=== PATIENT | male | born 1995 | race Caucasian/White ===

== ENCOUNTER 2019-08-09 09:00 | Outpatient (RCR) | payer OTHER, SELFPAY ==
--- NOTE | 2019-08-09 09:05 | BH.SGPN.GN ---
Behaviors/Verbalizations/Mental Status: []Client alert and oriented, neatly dressed and groomed. Eye contact good. Motor activity appropriate. Speech within normal limits. Affect flat, mood anxious. Thoughts linear, logical, no signs of hallucinations or delusions. Client completed IOP paperwork this morning and was assessed with the CSSR-S for suicidal ideations and behaviors. Client Response/Progress/Benefit: [] Client responded well to session, receptive to positive feedback from peers. Client reports feeling anxious today as it is his first day in IOP. Client reported he struggles with social anxiety, so meeting new people is difficult for him. The group helped client recognize the positives in coming to group today despite being anxious. Client stated he recently started a new job and it's a weird time to be starting a new job because of COVID-19. Client's stressor today is that he has not been sleeping. Client wants to improve his mental health and received supportive statements from peers about IOP. Client completed a small exercise where he identified things he is grateful for which included his supportive family and friends. Appeared to benefit from connecting with peers and identifying things he is grateful for today. Will continue IOP tx to prevent decompensation of symptoms, improve healthy coping skills, and reduce social anxiety. Narrative Note: []
--- NOTE | 2019-08-09 10:10 | BH.NA ---
Physical Data - Vital Signs Temperature: 97.7 F Pulse Rate: 80 Respiratory Rate: 16 Blood Pressure: 130/78 - Height/Weight Height: 1.78 m Weight:: 72.575 kg Weight in Pounds: 160.0 lbs Current Medication Compliance - Medication Compliance Do you take your medication as prescribed?: Yes Nutritional History - Appetite Nutritional Instructions:: If client shows signs of a swallowing problem, weight change of 10 pounds or more in the last month, or is on a diabetic diet, the physician will review and request a dietitian consult, as appropriate. All unintentional weight loss will be referred to the physician for decision on need for dietitian consult. Describe your appetite:: Fair Additional nutritional information:: client reports slightly decreased appetite Functional Assessment - Sleep Pattern Describe any problems with sleeping: Client reports sleeping only 5-6 hours per night. Client states that he wakes up frequently and has problems going back to sleep. - Activities Motor Activity:: Functional Sensory/Communication Assess - Communication Problems Do you have difficulty understanding what people are saying?: No Medical Problems/History - Gastrointestinal Conditions Gastrointestinal: Other (See comments) Comments:: history of eosinophilic esophagitis that he has done intermittent treatment for - Pain Assessment Do you have acute or chronic pain?: No Surgical History - Surgical History Have you had any surgeries? If so, list type and date:: No Substance Abuse - Substance Abuse Please describe substance abuse in the last 30 days:: Client reports occasional social alcohol use. Client states he uses chewing tobacco not very often. Client denies substance abuse. Client states he drinks 1-2 pops per day with caffiene. Mental Status Summary - Mental Status Significant Findings/Observations on Appearance and Mood:: Client is alert and oriented x 4. Client is casually groomed with good hygiene. Client is cooperative with assessment with normal activity. Client makes fair eye contact during conversation. Client's voice volume soft, rate of speech normal, and does speak spontaneously. Client with good attention during assessment. Client appears mildly anxious and depressed. Clients affect somewhat flat. Client with normal processing. Denies delusions/hallucinations and no evidence of same. Client denies SI at this time. Suicide Assessment - Suicidal Ideation Are you currently or have you been suicidal in the past?: No - denies Suicidal Intentional Rating Scale (SIRS): No suicidal thoughts (past or present) Physician Notification: If Active suicidal thoughts/Will not contract for safety is checked, contact physician and document in the Physician Notification section below. Past Psychiatric History - MH Treatment Hx Age of first mental health symptoms: Client states he was diagnosed around age 15 with anxiety and depression and states he has been going to therapy off and on since. Describe (age, circumstance, etc) any past hospitalizations: none Current providers for mental health treatment (counselor, psychiatrist, patient case coordinator, etc.): therapy at [facility] Fall Risk Assessment - Age Age: Less than 60 - Mental Status Mental Status: Willing & able to ask for assistance when needed - Physical Status Physical Status: No problems - Impairments Impairments: None - Elimination Elimination: Continent AND independent - Gait or Balance Gait or Balance: Walks independently - Hx of Falls History of falls in the past 6 months: No known history - Medications/Substances Psychotropics:: Antidepressants Medications/substances used within the past 24 hours or ordered to administer: 1-2 of the medications/substances listed above - Total Score Total Points:: 1 RN Summary of Impressions - Impressions Recommendations: Include psychiatric and medical issues, treatment planning recommendations, and discharge planning needs. 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 Client states he is in the process of changing his PCP to an adult doctor. - Level of Care How do the client's current symptoms and functional deficits support need for this level of care?: Client states his mental health symptoms seem to come in phases where he is able to cope okay for awhile, but then his symptoms and feelings of depression are worse. Client states recently he has been feeling hopelessness, low energy, feels like a burden, has poor self esteem. Client reports he feels like he wants to avoid social situations and isolate. Client states at times he does have feelings of panic attacks where his heart feels like it is racing. Client denies SI. IOP will promote gains and prevent further decompensation while providing social support and skills training.
--- NOTE | 2019-08-09 10:14 | BH.SGPN.GN ---
Behaviors/Verbalizations/Mental Status: []Client alert and oriented, casually dressed and groomed. Eye contact fair. Motor activity appropriate. Speech within normal limits. Affect flat, mood anxious and depressed. Thoughts linear, logical, no signs of hallucinations or delusions. Client Response/Progress/Benefit: []Client was a passive participant AEB client providing limited input during discussion, however listened attentively to others. Client connected with discussion on different types of anxiety, as well as the difference between ?normal? anxiety and anxiety disorders. Client gained awareness of personal physical symptoms of anxiety which included: headache, tight muscles, tight chest, racing heart, sweaty palms, and difficulty concentrating. Client identified anxious thoughts he has include: did I make a mistake?; What will everyone think?; Will they be mad at me?. Client appeared to benefit from gaining insight to physical signs of anxiety and how thoughts can increase anxiety. Will continue IOP to increase healthy coping skills, challenge distorted thoughts, and prevent decompensation. Narrative Note: []
[2019-08-09 12:13] VITALS: BP 130/78; PULSE 80; RESP 16; TEMP 36.5
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
--- NOTE | 2019-08-09 12:47 | BH.DR.ITP ---
Initial Treatment Plan - Patient Information Visit Information: ADMISSION DATE: EXPECTED LOS: 4-6 weeks - Problems/Symptoms Problem #1:: Depression Symptom:: Sadness, anhedonia, passive thoughts of , biological disruption of sleep, decreased concentration Problem #2:: Anxiety Symptom:: Rumination, panic attacks, avoidance of social activity
--- NOTE | 2019-08-09 14:31 | BH.COMM ---
Communication Note - Communication with Client Communication Note: Completed initial paperwork with patient. No significant changes since pre-admission screening. Completed C-SSRS with patient with low to moderate risk. Pt denies any active suicidal ideations in the past week, denies ever experiencing any intent or thinking of suicide plans. Notes passive thoughts of just not wanting to be here or not wanting to have to deal with things anymore.
--- NOTE | 2019-08-10 09:09 | BH.SGPN.GN ---
Behaviors/Verbalizations/Mental Status: []Client alert and oriented, casual dress, hygiene tended to. Eye contact good. Motor activity appropriate. Speech within normal limits. Affect flat, mood depressed and anxious. Thoughts linear, logical, no signs of hallucinations or delusions. Reviewed client?s symptom tracker, no signs of suicidal ideation, plan, or intent as of today. Client Response/Progress/Benefit: []Pt responded well to session AEB pt listening to others and sharing thoughts and feelings openly with group. Pt reported a mental health positive was starting a job on Wednesday which gives him something to do. Pt stated he is working two and a half days a week. Pt reported stressor is the coronovirus pandemic because it makes him more anxious. Pt stated everyone is talking about it so it makes him more anxious. Pt receptive to feedback and support from peers. Seemed to benefit from validation from others. Pt to continue IOP level of care to increase healthy coping, decrease depressive symptoms and prevent decompensation. Narrative Note: []
--- NOTE | 2019-08-10 10:09 | BH.SGPN.GN ---
Behaviors/Verbalizations/Mental Status: []Client alert and oriented, casually dressed and groomed. Eye contact good. Motor activity appropriate. Speech within normal limits, quiet and limited input provided. Affect congruent, mood anxious and depressed. Thoughts linear, logical, no signs of hallucinations or delusions. Client Response/Progress/Benefit: [] Client responded well to session, providing limited input though attentive and taking notes throughout. Client participated in discussion of things that can keep people feeling trapped or stuck in life including; isolation, lack of trust, pushing others away, focusing on negatives/defeatist attitude, unhealthy relationships, and negative self-talk. Group discussed the connection between thoughts, emotions, and behaviors as well as how negative thinking can keep a person stuck. Client expressed relating to examples provided by fellow participants. Engaged during psychoeducation on maintenance cycles. Client able to identify negative thoughts that have kept client feeling trapped. Client shared negative thought which was ?If I make a mistake, what will happen?? and ?Will someone be mad if I mess up??. Appeared to benefit from gaining awareness of how negative thoughts reinforce mental health symptoms and keep people stuck. Progress noted in client?s improving engagement in group. Will continue IOP to promote mood stability, reduce depression, and reinforce healthy coping skills. Narrative Note: []
--- NOTE | 2019-08-10 11:13 | BH.SGPN.GN ---
Behaviors/Verbalizations/Mental Status: []Client alert and oriented, neatly dressed and groomed. Eye contact good. Motor activity appropriate. Speech within normal limits. Affect flat, mood dysthymic/anxious. Thoughts linear, logical, no signs of hallucinations or delusions. Client Response/Progress/Benefit: []Client responded well to session, contributing to discussion when prompted. Client appeared to connect with maintenance cycles and recognized how negative thinking can keep a person stuck. Client identified a negative thought that has kept him stuck. Client shared he often struggles with looking too far into the future, rather than the next step. Client's thought was what will happen if I mess up? Client able to connect how this thought maintains anxious and depressive cycles. Client reported when thinks this way it leads to avoidance and feeling embarrassed. Client able to reframe the thought by saying let's be cautious, but recognize mistakes happen. You can keep going regardless. Client shared this thought would improve his mental health because it could reduce self-criticism. Client appeared to benefit from practicing challenging negative thinking. Client to continue IOP to prevent decompensation, improve healthy coping skills, and reduce social anxiety. Narrative Note: []
--- NOTE | 2019-08-11 09:10 | BH.SGPN.GN ---
Behaviors/Verbalizations/Mental Status: []Eye contact is good. Motor activity is appropriate. Appearance is casual. Speech is Appropriate, soft. Mood is depressed and anxious. Affect is constricted, flat. Thoughts are linear and logical. No evidence of psychosis. Reviewed daily check in sheet and no reports of suicidal ideations or intent. Client Response/Progress/Benefit: []Pt was receptive of session, engaged throughout. Described current mood as ?a little more upbeat? and noted this is due to improved sleep last night. Shared feeling more alert which pt noted as a mental health win as he will be able to focus more in group. Noted additional win as being able to reframe anxiety related to recent workplace restrictions by noting this as an opportunity for increased time spent with supports. Stressor noted as ongoing concern regarding current occupational uncertainty and fears the government will require, he not work given national pandemic. Appeared to benefit from the support of the group and focusing on that which is within his control. Benefited from group support, encouragement, and feedback. Will continue in IOP to prevent decompensation, stabilize mood, and improve daily functioning. Narrative Note: []
--- NOTE | 2019-08-11 10:14 | BH.SGPN.GN ---
Behaviors/Verbalizations/Mental Status: []Eye contact is good. Motor activity is appropriate. Appearance is neat. Speech is soft. Mood is dysthymic. Affect is constricted. Thoughts are linear and logical. No evidence of psychosis. Client Response/Progress/Benefit: []Client was an active participant AEB client taking notes and actively participating in the group activity. Client attentive and listening during the discussion of the quote and defining pitfalls. Group worked together to identify what keeps us stuck or vulnerable to pitfalls which included; negative thinking, social anxiety, learned behaviors, comfort, fear of failure, fear of rejection, and not asking for help. Client reported negative thoughts and social anxiety have kept client stuck and prevented him from taking risks. Engaged during the activity and providing directions at times. Benefited from increased awareness on the impact that pitfalls can have on mental health. Will continue IOP tx to prevent decompensation, improve daily functioning, and reduce anxiety.
--- NOTE | 2019-08-11 15:02 | BH.MDN ---
Multi-Disciplinary Note - Note 30-min Individual Time Started:: 11:07 Date: 08/11/19 Purpose of session/treatment goals addressed:: The purpose of this session was to gather information on client's current stressors, symptoms, and treatment goals. Another goal was to build rapport. Eye Contact:: Good Motor Activity:: Appropriate Appearance:: Neat Speech:: Soft Mood:: Dysthymic Affect:: Constricted Thoughts:: Linear, Logical, No evidence of hallucinations/delusions noted Staff Interventions:: Therapist used active listening and open-ended questions to explore client's current stressors, symptoms, history, and treatment goals. Therapist used strengths perspective to build rapport and help client identify personal resilience factors. Therapist provided psychoeducation on depression, maintenance cycles, and cognitive distortions. Client Response:: Client responded well to session, open to meeting with therapist. Client shared his outpatient therapist, Kait Baker, referred client to IOP. Client reported therapist had encouraged client to come last year and then again this year. Client shared he has been struggling to manage his mental health symptoms and it was beginning to impact his school work. Client shared he does not know what triggered his worsening symptoms. Reports isolative behaviors, anhedonia, passive thoughts of , guilt about not functioning at his baseline, and severe anxiety. Client states having social anxiety that causes client to shut down and avoid. Client reports this is often driven by his negative thoughts and fears of making mistakes. Client shared he is starting to feel more comfortable in IOP, but he is still anxious about being around people. Receptive to identifying treatment goals which included; reducing social anxiety, reducing negative thinking, being more positive, and decreasing guilt. Client and therapist discussed ERP therapy and how this could benefit client in reducing social anxiety. Risks/Concerns:: Client denies any active suicidal ideations, plan, and intent as of 08/11/19. Progress Toward Goals/Plan:: Client's first week of IOP tx. Currently endorses a depressed mood with anhedonia, low energy, and passive thoughts of . Client also reports social anxiety, avoidance behaviors, and negative thinking. Client shared his anxiety has caused client to struggle in college and prevents client for trying new things for fear that he will make mistakes. Receptive to ERP and learning more about managing his symptoms. Will continue IOP tx to prevent decompensation, improve daily functioning, and reduce anxiety. Time Stopped:: 11:27
--- NOTE | 2019-08-11 15:15 | BH.MTP_ITS ---
Master Treatment Plan - Patient Information Program Physician:: Dr. 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 Description of Barriers: Client shared he has been avoiding anxiety-producing situations which has led to isolation. Client's isolation reinforces depressive symptoms and further exacberates anxiety. Client has numerous distorted thoughts of self and thinks that others think negatively of him. Client's social anxiety prevents client from meeting new supports, performing in school, and advocating for himself in the work setting. Client reports in the past he has not been consistent with using coping skills and shared I eventually go back to old ways. Functional Impact: Client is a 24-year-old male with a history of depression and anxiety. Client has a no previous psychiatric admissions. Client was referred to [facility] by his outpatient therapist due to limited benefit from outpatient counseling. Client's mental health symptoms have impacted his ability to functioning in college. Client shared he was unable to perform academically and moved home from college. Client currently endorses a depressed mood, anhedonia, lack of motivation, fear, guilt about not performing well academically, isolative behaviors, ruminations, social anxiety, and avoidance behaviors. Client also endorses poor sleep, poor appetite, low energy, and poor self- esteem. Client reports some fleeting suicidal ideations, but denies any active suicidal ideations, plan, or intent. Client states having occasional panic attacks. Client's anxiety worsens in social situations and he reports numerous negative assumptions that reinforce low self-esteem. Client's symptoms are currently impacting his social, occupational, and educational functioning. Goal Relevant Strengths/Supports: Client presents as a kind, intelligent, and receptive individual. Client reports support from his mother, step-father, sister, and a few friends. Client is established with outpatient counseling through [facility]. Client enjoys spending time with his dog and when he is functioning at his baseline, he likes to go out with friends. - Objectives Objective #1 Stated Objective: Client will identify at least 2-3 negative self-talk messages used to reinforce negative core beliefs and replace thoughts with positive, realistic messages. Interventions: Therapist will help client identify distorted, negative beliefs about self and replace with more realistic, affirmative messages. Therapist will use CBT to help client increase insight to the connection between thoughts, emotions, and behaviors. Therapist will also use dialectical thinking to help client combat all or nothing expectations. Therapist will encourage client to practice thought challenging. Discharge Criteria: Client will have achieved this goal when can verbalize at least 2 negative self-talk messages and effectively replace those thoughts with affirmative messages. Target Date: 09/20/19 Review Date: 09/08/19 Status: open Objective #2 Stated Objective: Client will learn and utilize 2-3 healthy coping strategies to better manage depressive symptoms as shown by a reduced DSM-5 scores for depression. Interventions: Through group and individual sessions, therapist will help client identify triggers and warning signs of depression and emotional dysregulation including emotional, physical, and behavioral changes. Therapist will teach client various coping skills to manage her symptoms and give client tangible resources to use to regulate emotions. Therapist will use cognitive restructuring techniques and help client gain awareness of negative thoughts that reinforce guilt and depression. Therapist will provide psychoeducation on maintenance cycles and help client learn ways to break unhealthy maintenance cycles. Therapist will help client incorporate behavioral activation and assist client in setting SMART goals. Discharge Criteria: Client will have met this goal when he can report learning and using at least 2 coping skills to manage depressive symptoms. Additionally, client will have met this goal when his depressive symptoms have reduced on the DSM-5 scale. Target Date: 09/20/19 Review Date: 09/08/19 Status: open Problem/Goal #2 - Problem/Goal #2 Stated Goal:: Client will reduce social anxiety while increasing ability to function on daily basis. Description of Barriers: Client shared he has been avoiding anxiety-producing situations which has led to isolation. Client's isolation reinforces depressive symptoms and further exacberates anxiety. Client has numerous distorted thoughts of self and thinks that others think negatively of him. Client's social anxiety prevents client from meeting new supports, performing in school, and advocating for himself in the work setting. Client reports in the past he has not been consistent with using coping skills and shared I eventually go back to old ways. Functional Impact: Client is a 24-year-old male with a history of depression and anxiety. Client has a no previous psychiatric admissions. Client was referred to [facility] by his outpatient therapist due to limited benefit from outpatient counseling. Client's mental health symptoms have impacted his ability to functioning in college. Client shared he was unable to perform academically and moved home from college. Client currently endorses a depressed mood, anhedonia, lack of motivation, fear, guilt about not performing well academically, isolative behaviors, ruminations, social anxiety, and avoidance behaviors. Client also endorses poor sleep, poor appetite, low energy, and poor self- esteem. Client reports some fleeting suicidal ideations, but denies any active suicidal ideations, plan, or intent. Client states having occasional panic attacks. Client's anxiety worsens in social situations and he reports numerous negative assumptions that reinforce low self-esteem. Client's symptoms are currently impacting his social, occupational, and educational functioning. Goal Relevant Strengths/Supports: Client presents as a kind, intelligent, and receptive individual. Client reports support from his mother, step-father, sister, and a few friends. Client is established with outpatient counseling through [facility]. Client enjoys spending time with his dog and when he is functioning at his baseline, he likes to go out with friends. - Objectives Objective #1 Stated Objective: Client will identify 2-3 anxiety triggers and 2 coping skills to use when feeling anxious to manage anxiety as shown by decreasing his DSM-5 scores for anxiety. Interventions: Therapist will provide education on anxiety, avoidance behaviors, and maintenance cycles. Therapist will help client explore personal symptoms and warning signs of anxiety. Therapist will teach client coping skills to improve emotional regulation, mindfulness, and distress tolerance to help client cope with anxiety in the moment. Discharge Criteria: Client will have accomplished this goal when he can identify at least 2 triggers and report using 2 coping skills to manage anxiety. Additionally, client will have accomplished this goal when his DSM-5 scores show a reducion for anxiety. Target Date: 09/20/19 Review Date: 09/08/19 Status: open Objective #2 Stated Objective: Client will reduce avoidance behaviors that reinforce anxiety by setting 1-2 small exposure goals a week to increase socialization, increase mastery, and reduce anxiety over time. Interventions: Through group and individual sessions, client will learn about the benefits of setting exposure goals to overcome anxiety-producing situations. Therapist will help client create a fear-ladder that will act as a guide in confronting anxiety-producing situations. The fear-ladder will go from least anxiety-producing to most anxiety-producing so client can build confidence. Therapist will help client set SMART goals and challenge barriers. Therapist will use cognitive restructuring techniques and help client gain awareness of negative thoughts that reinforce avoidance behaviors and fear of judgement. Therapist will help client incorporate mindfulness, opposite action, and self- talk strategies to manage anxiety. Discharge Criteria: Client will have accomplished this goal when he can report accomplishing at least one small exposure goal a week. Additionally, client will be able to report decreased avoidance behaviors. Target Date: 09/20/19 Review Date: 09/08/19 Status: open
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
--- NOTE | 2019-08-16 09:06 | BH.SGPN.GN ---
Behaviors/Verbalizations/Mental Status: []Eye contact is good. Motor activity is appropriate. Appearance is neat and casual. Speech is Appropriate, soft. Mood is dysthymic and anxious. Affect is constricted, flat. Thoughts are linear and logical. No evidence of psychosis. Reviewed daily check in sheet and pt reports of suicidal ideations and intent at a rate of 1/5 which is consistent with his baseline. Reports ability to maintain safety and is future oriented. Client Response/Progress/Benefit: []Pt was receptive of session, engaged throughout. Described current mood as ?indifferent? and noted this is due to ongoing difficulties in remaining present. Shared feeling tense this morning which is a mild stressor as it increases anxiety; however he did well to identify skills for reducing tension. This included taking deep breaths and trying to get outside. Pt did well to identify mental health wins as well which included continuing to get regular sleep which he feels is contributing to increase focus in the treatment environment and improving overall ability to engage despite difficulties with feeling present. Noted additional win as beginning to identify potential barriers and improve his insight into his own mental health ?pitfalls?. Discussed that this awareness will help him to formulate a plan for beginning to address barriers. Appeared to benefit from the support of the group and identifying small self-care skills. Will continue in IOP to prevent decompensation, stabilize mood, and improve daily functioning. Narrative Note: []
--- NOTE | 2019-08-16 11:14 | PCM.BH.PN_ITS ---
Progress Note Progress Note: History of Present Illness/Interim History: [] Patient is a 24-year-old single male who is seen in follow-up at the [place] [facility] program. I last saw the patient 1 week ago and at that time he was started on Wellbutrin XL for depression and Vistaril for panic attacks. The patient states that he is tolerating the Wellbutrin and the Vistaril well. He also has continued taking his Lexapro 20 mg daily. He feels that he may be a little better. His mood may be slightly better although he is still depressed. He states that his appetite has improved and eating he is eating more. His sleep is also better he is getting about 7 to 8 hours a night on most nights now. His panic attacks have decreased to only about 3 in the last week where he was getting them daily before. He feels the Vistaril does help his panic attacks. He denies any suicidal ideation now whatsoever. He also is having only rare thoughts that he would not care if he . These are much rarer than they were before. He started a new job last week and [employer] which is part-time. He enjoys the job so far. He feels the [facility] is helping him and he is learning skills and how to implement them. Current Psychiatric Medications: [] Lexapro 20 mg p.o. daily (over 1 year); Wellbutrin XL 150 mg p.o. every morning (x1 week); Vistaril 25 mg, 1 p.o. up to 3 times daily as needed for panic attacks (x1 week) Mental Status Examination: [] Patient is a 24-year-old male who appears normal for stated age and is casually dressed and groomed with good hygiene. He is cooperative during the interview with good eye contact. His speech is normal rate and rhythm and quiet but fluent. Mood is depressed. Affect is quite constricted but not as flat as before. Thought process is goal- directed and organized. Thought content: No evidence of suicidal ideation whatsoever. Rare passive thoughts that he would not care if he . No evidence of homicidal ideation, hallucinations or delusions. Concentration is somewhat improved. Impulsivity low. Insight: Improving. Judgment: Intact. Diagnoses: [] Victor I: [] Major depressive disorder recurrent severe without psychosis; generalized anxiety disorder Victor II: [] Rule out avoidant traits Victor III: [] Negative Victor IV:[]] Primary support, school and work issues Plan: [] The patient will continue the IOP program at as the structure, education, support, group and individual therapy will hopefully prevent worsening of the patient's symptoms which might require hospitalization. The risk, options, possible side effects and complications of the medication were discussed again with the patient and he understands and accepts these. He felt safe during the interview and if at any time he does not feel safe he agrees to tell us at the IOP program or go to the emergency room. His vitamin D and TSH and lab results are pending. He will continue the same doses of the medications he is on. He is walking his dog every day but agrees to try to start exercising a little more. I will see the patient in 2 weeks.
--- NOTE | 2019-08-17 10:00 | BH.MDN ---
Multi-Disciplinary Note - Note 60-min Individual Time Started:: 09:05 Date: 08/17/19 Purpose of session/treatment goals addressed:: The purpose of this session was to review client's self-assessment for social anxiety as well begin creating a treatment plan to decrease client's anxiety. Another goal was to provide psychoeducation on anxiety, distortions, and healthy coping skills. Eye Contact:: Fair Motor Activity:: Appropriate Appearance:: Casual Speech:: Soft Mood:: Anxious Affect:: Flat Thoughts:: Linear, Logical, No evidence of hallucinations/delusions noted Staff Interventions:: Therapist used active listening and open-ended questions to gather client's thoughts on the self-assessment. Therapist reivewed client's answers and helped client identify themes. Therapist then used client's themes to identify specific treatment goals to reduce social anxiety. Therapist taught client calming strategies to manage client's phyisological responses to anxiety. Therapist provided psychoeducation on anxiety, avoidance behaviors, and cognitive disortions that reinforce social anxiety. Therapist helped client begin a fear ladder and asked client to fill out the rest for homework. Client Response:: Client responded well to session, open to meeting with therapist. Client completed the two self-assessments provided by therapist. Client reflected on his responses and recognized that his social anxiety manifests in physical responses as well as cognitive distortions. Client identified his physiological responses which included; increased heart rate, tense shoulders, racing thoughts, tingling, and restlessness. Client also identified distortions and worries he has when faced with social situations. Many of client's concerns are that he will be judged, he fears people will not like him, he fears embarrassment, and worries that he will not be interesting or smart enough. Client shared because of these thoughts he avoids meeting new people, stepping out of his comfort zone, and being social. Client shared I've become a recluse as client has been coping with anxiety by avoiding per his report. Receptive to psychoeducation on anxiety and avoidance behaviors. Client connected with how avoidance behaviors reinforce anxiety and cause short term relief but increase anxiety over time. Client receptive to creating a fear ladder to help client slowly expose himself to anxiety-producing social situations. Client and therapist discussed the benefits of slow exposure to build mastery and confidence. Client learned calming strategies he can use to manage his anxiety in the moment. Practiced the 5-senses, deep breathing, and reviewed making mental lists. Client willing to practice the 5-senses and making mental lists today. Risks/Concerns:: Client denies any active suicidal ideations, plan, or intent as of 08/17/19. Client furture oriented throughout session. Progress Toward Goals/Plan:: Client's second week in IOP, appears to be responding well to treatment AEB client sharing more during group sessions. Client completed the self-assessments and was receptive to working on creating a fear-ladder. Client continues to endorse daily anxiety, social anxiety, avoidance behaviors, negative thoughts, and depressive symptoms. Client will continue IOP tx to improve daily functioning that has been impaired by anxiety as well as improve mood stability. Time Stopped:: 09:55
--- NOTE | 2019-08-17 11:20 | BH.SGPN.GN ---
Behaviors/Verbalizations/Mental Status: []Client alert and oriented, casual dress, hygiene tended to. Eye contact fair. Motor activity appropriate. Speech soft tone. Affect constricted, mood dysthymic and anxious. Thoughts linear, logical, no signs of hallucinations or delusions. Client Response/Progress/Benefit: []Client?engaged during session AEB client providing contributions throughout group session. Client acknowledged the importance of needing to have awareness and put forth the effort to challenge, reframe, and replace distorted thought patterns. Client worked cooperatively with group to challenge distorted thoughts and was attentive in learning strategies to combat distortions. Client reported a distorted thought he had when got the worksheet was I'm sorry; explaining he often takes takes responsibility for things he wasn't involved in. Client reported this thought makes him feel anxious, guilty and tense. Client stated the thought is personalization. Client reframed the thought to That is unfortunate, I do not need to take blame because I was not there. Client seemed to benefit from increased awareness of cognitive distortions and practicing reframing distorted thoughts. Client to continue IOP level of care to increase healthy coping, decrease social anxiety, and prevent decompensation. Narrative Note: []
--- NOTE | 2019-08-18 10:18 | BH.SGPN.GN ---
Behaviors/Verbalizations/Mental Status: [] Eye contact is good. Motor activity is appropriate. Appearance is casual. Speech is Appropriate, soft. Mood is anxious. Affect is congruent. Thoughts are linear and logical. No evidence of psychosis. Client Response/Progress/Benefit: []Pt was an active participant in group discussion and activity, taking notes throughout. Pt worked with peers on defining what goals are. Brainstormed with the group the benefits of goal-setting which included: increased motivation, feeling that longer term goals are more accomplishable, feel more accomplished, and increase positive thinking. Pt and group worked together to identify barriers impacting ability to reach goals as: external influences and other?s opinions, disqualifying small steps towards progress, setbacks, and unrealistic expectation. Noted connecting with barrier of progress not feeling significant and unrealistic expectations. Able to provide feedback during psychoeducation on SMART goals and discussed importance of heaving specific goals in order to measure progress. Pt appeared to benefit from learning the mental health benefits of setting goals that are specific, measurable, attainable, relevant, and time-specific. Will continue in IOP to decrease distorted thinking, improve functioning, and prevent decompensation. Narrative Note: []
--- NOTE | 2019-08-18 11:18 | BH.SGPN.GN ---
Behaviors/Verbalizations/Mental Status: []Eye contact is fair. Motor activity is appropriate. Appearance is neat. Speech is Appropriate. Mood is anxious. Affect is constricted. Thoughts are linear and logical. No evidence of psychosis Client Response/Progress/Benefit: []Client was engaged and contributing to discussion when prompted. Provided appropriate feedback to peers and shared his goal with the group. Client chose the goal; to have a conversation with one person he does not know well each day. When asked why this goal was important and beneficial to client's mental health he stated; it will help him work on his social anxiety and become more comfortable. Identified the following barriers to completing this goal which included; fear of failure and rejection, lack of motivation, physical reactions to anxiety, and negative assumptions. Identified solutions to barriers which included; positive self-talk, setting reminders on his phone, practicing relaxation techniques, and using opposite action. Benefited from this group by practicing how to develop a short-term SMART goals related to mental health. Will continue IOP tx to further decrease depression, reduce social anxiety, and further combat cognitive distortions. Narrative Note: []
--- NOTE | 2019-08-22 15:19 | BH.COMM_ITS ---
Communication Note - Communication with Client Communication Note: This therapist spoke client's outpatient therapist at [facility] to discuss updates and continuity of care. Will continue to be in contact with outpatient therapist.
== END 2019-08-22 23:59 ==
LOC: BHIOP 09:00
PROVIDERS: PCP Pediatrics; Referring Provider Psychiatry & Neurology Psychiatry; Visit Provider Psychiatry & Neurology Psychiatry
DX: F33.2 Major depressive disorder, recurrent severe without psychotic features (principal); F41.1 Generalized anxiety disorder; Z79.899 Other long term (current) drug therapy
CPT/HCPCS: H0035; 90832; 90837; 90853

== ENCOUNTER 2019-08-23 09:00 | Outpatient (RCR) | payer OTHER, SELFPAY ==
[2015-05-31 21:46] VITALS: BMI 19.3
[2019-08-23 01:01] VITALS: BP 130/78; PULSE 80; RESP 16; TEMP 36.5
--- NOTE | 2019-08-23 09:08 | BH.SGPN.GN ---
Behaviors/Verbalizations/Mental Status: []Client alert and oriented, casual dress, hygiene tended to. Eye contact good. Motor activity appropriate. Speech within normal limits. Affect congruent, mood anxious. Thoughts linear, logical, no signs of hallucinations or delusions. Reviewed client?s symptom tracker, no signs of suicidal ideation, plan, or intent as of today. Client Response/Progress/Benefit: []Pt responded well to session AEB pt sharing thoughts and feelings during session and listening attentively to others. Pt reported a mental health positive is being productive the last couple of days of rearranging his room, spending time outside, and walked dog outside. Pt stated additional mental health positive being more aware of his anxious and negative thoughts with ability to challenge some of the thoughts. Pt reported his current stressor is work because doesn't have a lot of support due to not many people working in the office during the pandemic. Pt to continue IOP to increase healthy coping, continue to challenge thoughts and prevent decompensation. Narrative Note: []
--- NOTE | 2019-08-23 10:08 | BH.SGPN.GN ---
Behaviors/Verbalizations/Mental Status: []Client alert and oriented, neatly dressed and groomed. Eye contact good. Motor activity appropriate. Speech within normal limits, soft. Affect constricted, mood anxious. Thoughts linear, logical, no signs of hallucinations or delusions. Client Response/Progress/Benefit: []Client was an engaged participant throughout group session AEB client listening attentively and taking notes throughout. Client listened and nodded as the group discussed the quote and the ways in which people cope with stressors. Discussed how sometimes people cope using unhealthy skills. Group identified unhealthy coping skills which included; denying there is a problem, procrastinating, sleeping, avoidance, and externalizing. Client stated when he has used unhealthy coping skills ?it makes anxiety worse.? Group identified consequences of using unhealthy coping skills which included; problem gets worse, can increase intensity of mental health symptoms, cause guilt, and hurt relationships. Client agreed that learning healthy coping skills takes self-awareness and practice. Discussed the benefits of having a balance of internal and external coping skills. Client seemed to benefit from increased awareness of importance of increasing healthy coping skills and consequences of utilizing unhealthy coping skills. Client will continue IOP tx to further decrease anxiety, reduce distorted thinking patterns, and improve daily functioning. Narrative Note: []
--- NOTE | 2019-08-23 11:10 | BH.SGPN.GN ---
Behaviors/Verbalizations/Mental Status: []Client alert and oriented, casually dressed and groomed. Eye contact good. Motor activity appropriate. Speech within normal limits, quiet. Affect congruent, mood depressed, anxious. Thoughts linear, logical, no signs of hallucinations or delusions. Client Response/Progress/Benefit: []Client responded well to session, taking notes and engaged during discussion. Shared that he feels he has some healthy coping strategies but often falls back on avoidance. He contributed as the group discussed the different categories of coping skills which included distraction, emotional release, grounding, self-love, and thought challenging. Client identified using distraction as a means of reducing anxious thoughts. Participated in creating a coping skills ?menu? for the five categories of coping skills. Client identified wanting to focus on improving thought challenging skills this week by identifying distortions. Shared his will help to reduce reassurance seeking. He appeared to benefit from increasing repertoire of healthy coping skills. Client progress shown by his report of improved ability to identify negative or anxious thoughts though continues to struggle with challenging these. Will continue IOP tx to prevent decompensation, improve mood stability, and promote healthy change behaviors. Narrative Note: []
--- NOTE | 2019-08-24 09:05 | BH.SGPN.GN ---
Behaviors/Verbalizations/Mental Status: []Client alert and oriented, neatly dressed and groomed. Eye contact fair. Motor activity appropriate. Speech within normal limits. Affect constricted, mood anxious. Thoughts linear, logical, no signs of hallucinations or delusions. Reviewed client?s symptom tracker, no risk for suicidal ideation, plan, or intent as of 08/24/19. Client Response/Progress/Benefit: []Client responded well to session, providing ideas for thought challenging and attentive throughout. Client reports feeling lifeless and overwhelmed today. Client shared he is feeling anxious about all the things I'd like to accomplish in the next few days. Client also stated he did not get good sleep last night. Client receptive to discussion of ways to manage anxiety and set small goals for tasks. Client's mental health wins today included actively using thought challenging and deep breathing as well as finishing up his work for the week. Client shared last night his anxiety was triggered as client feared he said something that upset a coworker. Client was able to use deep breathing to slow his mind down and then reframe his negative thoughts. Appeared to benefit from connecting with peers and reflecting on his application of thought challenging to managing rumination. Will continue IOP tx to further decrease anxiety, combat distorted thinking, and improve social and occupational functioning. Narrative Note: []
--- NOTE | 2019-08-24 10:12 | BH.SGPN.GN ---
Behaviors/Verbalizations/Mental Status: []Client alert and orient. Appearance casual and appropriately groomed. Speech an appropriate rate and tone. Motor activity WNL. Mood depressed and anxious, affect congruent to mood. No evidence of delusion or hallucinations.? Client Response/Progress/Benefit: []Pt receptive of session, engaged throughout the discussion on the importance of healthy communication. Pt worked with the group to define healthy communication and it?s various attributes. Discussed benefits of healthy communications on mental health and maintaining healthy relationships which included: improved mood, increased ability to get your point across, needs are more likely to be met, increased ability to collaborate with others, and healthier relationships. Pt receptive of and appeared to benefit from psychoeducation portion discussing different styles of communication, nodding throughout and provided input on each style. Progress noted in pt ability to challenge himself to engage despite struggling with anxiety. Pt noted identifying with passive communication. Pt shared use of passive communication has reinforced depressive sx and negative self-talk. Pt to continue in IOP tx to continue to promote healthy change behaviors, reduce depression and anxiety, and prevent decompensation. Narrative Note: []
--- NOTE | 2019-08-24 14:17 | BH.MDN ---
Multi-Disciplinary Note - Note 30-min Individual Time Started:: 11:46 Date: 08/24/19 Purpose of session/treatment goals addressed:: The purpose of this session was to address current symptoms, stressors, and application of coping skills. Another goal was to rehearse calming strategies and thought challenging. Other topics included; coming up with fear ladder goals. Eye Contact:: Fair Motor Activity:: Appropriate Appearance:: Neat Speech:: Soft Mood:: Anxious Affect:: Constricted Thoughts:: Linear, Logical, No evidence of hallucinations/delusions noted Staff Interventions:: Therapist used active listening and open-ended questions to gather client's current symptoms, stressors, and triggers. Therapist reviewed client?s homework and processed barriers. Therapist helped client identify anxiety producing situations for client?s fear ladder and helped client rate these situations based on level of anxiety. Therapist helped client set small fear ladder goals for the week. Therapist taught client calming strategies to manage client's physiological responses to anxiety. Therapist provided psychoeducation on anxiety, avoidance behaviors, and cognitive distortions that reinforce social anxiety. Client Response:: Client responded well to session, open to meeting with therapist. Client stated he has been doing a little better with his mood and does not feel as depressed. Client has been trying to be physically active and has been spending time with family. Client reported she has also been working on thought challenging and deep breathing. Client shared thought challenging helped him last night when he was ruminating. Client did not know what to fill out for his fear ladder homework and was open to working on this during session. Client shared he has been working on the first step of his fear ladder which is saying hi to at least two people he does not know very well each week. Client and therapist worked on rating anxiety producing situations from most anxiety producing to least. Client's most anxiety producing situations include; public speaking to a crowd, making eye contact with someone for extended period of time, and asking for clarification in a group environment. With assistance, client was able to break this down into small exposure goals. Client will work on practicing eye contact with one person twice a week. Client will do this with a trusted family member and then once at work. Client will also ask for clarification during an IOP group. Client shared although these goals give him anxiety, they are achievable. Client receptive to learning calming strategies and rehearsing them during session. Client shared he liked progressive muscle relaxation the best from today. Risks/Concerns:: Client denies any suicidal ideations, plan, or intent as of 08/24/19. Future oriented throughout session. Progress Toward Goals/Plan:: Client appears to be responding well to treatment AEB client sharing more during group sessions and reporting an improved mood. Client has been active during individual sessions as well and is receptive to learning and practicing healthy coping skills. Client reports less depression symptoms this week which is progress. Client continues to endorse daily anxiety, social anxiety, avoidance behaviors, and negative thoughts. Client receptive to creating small fear ladder goals and will practice them throughout the week. Client will continue IOP tx to improve daily functioning that has been impaired by anxiety as well as improve mood stability. Time Stopped:: 12:18
--- NOTE | 2019-08-25 10:13 | BH.SGPN.GN ---
Behaviors/Verbalizations/Mental Status: []Client alert and oriented, neatly dressed and groomed. Eye contact fair. Motor activity appropriate. Speech within normal limits. Affect constricted, mood anxious. Thoughts linear, logical, no signs of hallucinations or delusions. Client Response/Progress/Benefit: []Client receptive of session, attentive in discussion and activity. Client discussed the quote and provided input on how not managing one?s emotions in healthy ways can cause personal and relationship problems. Discussed personal and interpersonal consequences of ?stuffing? emotions as well as having outbursts. Client shared that stuffing emotions can lead to a cycle of ?stuffing and exploding.? Client helped group identify barriers that impact one?s ability to communicate when emotions are high. These barriers included; fear, embarrassment, racing thoughts, making assumptions, not being able to articulate, and second-guessing. Client also reported lack of confidence can keep him from communicating when he feels anxious. Attentive during psychoeducation on steps to improve emotional regulation. Client participated in the activity and did well to manage emotions throughout. Client stated using mindfulness to manage anxiety in the moment. Client appeared to benefit from increasing awareness of how emotions can impact communication and practicing in the moment coping skills. Progress noted as client took on a role during the activity that was out of his comfort zone. Client will continue IOP tx to further decrease social anxiety and improve daily functioning. Narrative Note: []
--- NOTE | 2019-08-25 11:18 | BH.SGPN.GN ---
Behaviors/Verbalizations/Mental Status: []Client alert and oriented, neatly dressed and groomed. Eye contact fair. Motor activity appropriate. Speech within normal limits. Affect constricted, mood anxious. Thoughts linear, logical, no signs of hallucinations or delusions. Client Response/Progress/Benefit: []Client engaged in session AEB client listening attentively to peer and providing input at times during session. Attentive during psychoeducation on 4 zones of regulation. Client able to identify how he feels in each zone as well as how he behaves in each zone. Client able to recognize that having awareness of his emotions in each zone will give client direction on what coping skills to use. Group identified coping skills can use to support self in each zone which included: journaling, opposite action, exercising, listening to music, deep breathing, progressive muscle relaxation, and reaching out to supports. Client stated belief that he is in the yellow zone today because he feels restless and anxious. Client reported he will talk to his family and friends today to help him calm down as well as practice deep breathing and thought challenging. Benefited from increased education on zones of regulation or stages of alertness for emotions and healthy coping skills to use for each zone. Will continue IOP tx to decrease social anxiety, improve confidence, and reduce distortions that reinforce low self-esteem. Narrative Note: []
--- NOTE | 2019-08-30 09:02 | BH.SGPN.GN ---
Behaviors/Verbalizations/Mental Status: []Client alert and oriented, neat and casual in appearance. Eye contact good. Motor activity appropriate. Speech within normal limits, quiet. Affect congruent, mood anxious, dysthymic. Thoughts linear, logical, no signs of hallucinations or delusions. Reviewed daily symptom tracker and client reports scores of suicidal ideation at a 1/5 which is consistent with his baseline. Denies any plan or intent at this time. Client Response/Progress/Benefit: []Pt was an active participant in group AEB pt listening attentively, nodding, and openly processing feelings with the group. Emotion for today is upbeat. Pt identified mental health positive as being able to begin tapping back into activities he used to enjoy for self-care rather than focusing solely on what he feels he ?has to do?. Shared beginning to listen to music more consistently. Pt stated additional mental health positive as making an effort to reach out to and communicate with friends. Shared that by making these two small changes he has already seen positive effects on his mental health. Shared current stressor as not getting much sleep last night. Appeared to benefit from support of the group. Progress noted in pt ability to actively apply healthy coping skills and challenge distorted thoughts in order to begin to reduce mental health sx. Continued IOP tx recommended to continue application of healthy coping skills, identify and challenge distorted thoughts, reduce mental health sx, and prevent decompensation. Narrative Note: []
--- NOTE | 2019-08-30 10:15 | BH.SGPN.GN ---
Behaviors/Verbalizations/Mental Status: []Client alert and oriented, casual dress, hygiene tended to. Eye contact fair. Motor activity appropriate. Speech within normal limits. Affect constricted, mood anxious. Thoughts linear, logical, no signs of hallucinations or delusions. Client Response/Progress/Benefit: []Pt responded well to session AEB pt contributing to session and listening attentively to others. When group discussed importance of accepting change is a part of living. Pt connected with this strategy because he struggles with over planning social situations. Pt reported he will try to plan ahead what he will say because wants to have control over the situation and doesn?t like the unknown. Pt he recognizes the negative impact of trying to control the uncontrollable. Pt seemed to benefit from increasing awareness of strategies to increase personal resilience. Pt to continue IOP to continue use of healthy coping, challenge anxious thoughts and prevent decompensation. Narrative Note: []
--- NOTE | 2019-08-30 11:14 | BH.SGPN.GN ---
Behaviors/Verbalizations/Mental Status: []Client alert and oriented, casually dressed and groomed. Eye contact good. Motor activity appropriate. Speech within normal limits. Affect constricted, mood anxious. Thoughts linear, logical, no signs of hallucinations or delusions. Client Response/Progress/Benefit: []Client engaged participant as evidenced by client providing input throughout discussion and listening attentively to peers. Client worked cooperatively with peers to identify how each resiliency component can help increase personal resiliency. Client identified current stressors in his life that he would like to become more resilient towards. These things included wanting to be more flexible and confident at his new job and be less anxious in social situations. Client left before reporting what his resilience goal was and identifying personal resilience factors. Client still appeared to benefit from increasing insight to ways in which client can improve his resilience to adversity and daily stressors. Client to continue IOP tx to further decrease anxiety, improve confidence, and combat distortions reinforcing low self-esteem. Narrative Note: []
--- NOTE | 2019-08-31 09:01 | BH.SGPN.GN ---
Behaviors/Verbalizations/Mental Status: []Client alert and oriented, casual dress, hygiene tended to. Eye contact good. Motor activity appropriate. Speech within normal limits. Affect constricted, mood euthymic. Thoughts linear, logical, no signs of hallucinations or delusions. Reviewed client?s symptom tracker, pt denies current suicidal thoughts or intention to date. Client Response/Progress/Benefit: []Pt responded well to session as evidenced by pt openly sharing thoughts and feelings and listened attentively to peers. Pt reported mental health positive as having a productive day at work yesterday. Pt stated work is still stressful, but he believes he is managing the stress better. Pt reported additional mental health positive as starting to find humor in little things. Pt stated he is able to laugh more often recently. Pt reported current stressor as realizing last night he didn't complete a homework assignment for his college course because it wasn't on the syllabus. Pt stated he at first panicked last night, but used positive self-talk and reached out to support from his mom. Pt reported he emailed the professor and is reminding himself it will likely be okay. Pt to continue IOP to continue use of healthy skills, challenge unhealthy thought patterns and prevent decompensation.
--- NOTE | 2019-08-31 10:13 | BH.SGPN.GN ---
Behaviors/Verbalizations/Mental Status: []Client alert and oriented, neatly appearance. Eye contact fair. Motor activity appropriate. Speech within normal limits. Affect constricted, mood anxious. Thoughts linear, logical, no signs of hallucinations or delusions. Client Response/Progress/Benefit: []Client responded well to session, contributing to discussion and engaged during the activity. Attentive during discussion on the quote and shared sometimes I don't trust myself to handle what comes with change. Client also reported that doing something difficult is never easy, so there really is never a right time. Group identified the benefits of change which included: personal growth, solving problems, improving mental health, getting out of bad circumstances, and getting unstuck. Worked with the group to identify barriers to change, which included: uncomfortable emotions such as anxiety, lack of motivation, lack of energy, external variables, and negative thinking. Client participated along with group in activity where they identified and discussed the emotions related to change. Client was able to practice doing something that made his anxious in a safe environment and was success in drawing in front of peers. Benefited from increased awareness and understanding of emotions, benefits, and barriers related to change. Will continue IOP tx to further decrease negative thoughts, reduce avoidance behaviors, and improve mood stability. Narrative Note: []
--- NOTE | 2019-08-31 13:52 | BH.MDN_ITS ---
Multi-Disciplinary Note - Note 45-min Individual Time Started:: 12:00 Date: 08/31/19 Purpose of session/treatment goals addressed:: The purpose of this session was to address current symptoms, stressors, and application of coping skills. Another goal was to review client's fear ladder and identify additional anxiety- producing situations. Eye Contact:: Good - making more eye contact than normal Motor Activity:: Appropriate Appearance:: Neat Speech:: Appropriate Mood:: Anxious Affect:: Congruent Thoughts:: Linear, Logical, No evidence of hallucinations/delusions noted Staff Interventions:: Therapist used active listening and open-ended questions to gather client's current symptoms, stressors, and triggers. Therapist reviewed client?s homework and processed barriers. Therapist assisted client identifying fear ladder situations as client struggled to identify them on his own. Therapist helped client challenge distortions that reinforce anxiety and avoidance behaviors. Therapist provided psychoeducation on the stress response and how to rewire the brain. Therapsit gave client homework to practice thought challenging and engage in at least one embarrassing situation client selected. Client Response:: Client responded well to session, open to meeting with therapist. Client reported he has been feeling better and that he has begun to find reg in small things again. However, client continues to struggle with anxiety and distortions that reinforce his avoidance behaviors. Client's distortions typically relate to client's fears about what others will think of him. Client shared he struggled with coming up with fear ladder situations on his own, but he was open to doing this session. Client has been more engaged in groups and he reports feeling safe and comfortable at group. Because of this, client feels ready to take on higher rated anxiety situations. Client receptive to identifying embarrassing situations he can practice on purpose. Discussed the benefits of doing this which include increasing distress tolerance and confidence. Client selected three to try this weekend and next week. Client also receptive to writing out three negative thoughts a day and challenging them. Risks/Concerns:: Client denies any suicidal ideations, plan, or intent as of 08/31/19. Progress Toward Goals/Plan:: Client appears to be responding well to treatment as client becomes more engaged and active in sessions each week. Client's depression continues to decrease and client reports he has been feeling more positive and finding reg in small things again. Client continues to endorse daily anxiety, social anxiety, avoidance behaviors, and negative thoughts. However, client has been working on confronting things he is anxious about rather than avoiding these situations. Receptive to practicing embarrassing himself on purpose today. Client will continue IOP tx to improve daily functioning that has been impaired by anxiety as well as improve mood stability. Time Stopped:: 12:45
--- NOTE | 2019-09-01 09:08 | BH.SGPN.GN ---
Behaviors/Verbalizations/Mental Status: []Client alert and oriented, appropriately groomed and casual in appearance. Eye contact good. Motor activity appropriate. Speech within normal limits. Affect congruent, mood anxious and euthymic. Thoughts linear, logical, no signs of hallucinations or delusions. Reviewed daily symptom tracker and client denies suicidal ideation, plan, or intent at this time. Client Response/Progress/Benefit: []Client receptive of session, actively engaged throughout AEB attentively listening to others and openly processing with the group. He did well to identify current mental health wins and indicated that one win was challenging himself to complete the homework he was given in individual session, which was to practice intentionally embarrassing himself. Client expressed feeling nervous initially, but then felt proud and was able to laugh about it afterward. Expressed feeling anxious but excited for his next homework task. He noted that another win is being able to continue to engage in self-care activities such as music and reaching out to supports. Identified his current stressor as needing to get the brakes on his car fixed. Appeared to benefit from group support and identifying his areas of progress. Recommended continued IOP tx to further reduce anxiety and depression, reduce intrusive thoughts impacting self-esteem, and prevent decompensation. Narrative Note: []
--- NOTE | 2019-09-01 10:15 | BH.SGPN.GN ---
Behaviors/Verbalizations/Mental Status: []Client alert and oriented, casual dress, hygiene tended to. Eye contact good. Motor activity appropriate. Speech within normal limits. Affect congruent, mood anxious. Thoughts linear, logical, no signs of hallucinations or delusions. Client Response/Progress/Benefit: []Pt responded well to session AEB pt providing input throughout discussion and listened attentively to peers. Pt reported you can choose what thoughts you focus on which can impact stress level. Pt defined stress as pressure from outside sources and expectations. Group identified benefits to stress include: increase motivation, builds resilience, increases senses, keeps us safe, and can help us grow. Pt reported when in distress his thoughts are all over the place which results in him not being able to concentrate. Pt reported when in distress his heart rate increases and breathing is more rapid. Group identified common responses to being overwhelmed with stress includes: avoiding, shut down, little patience, more snappy, uncontrollable crying, self-harm thoughts, and rage towards others. Pt stated when he is overly stressed. Pt identified current stressors to include: money, mental health, relationships, physical health, COVID-19, work, school, and car repairs. Pt stated his stress jar is not as full as in the past because not trying to let as much negatively impact him and has an overall improved mood. Pt seemed to benefit from increased awareness of current stressors. Pt to continue IOP to increase healthy coping, decrease anxious thought patterns, and prevent decompensation. Narrative Note: []
--- NOTE | 2019-09-01 11:15 | BH.SGPN.GN ---
Behaviors/Verbalizations/Mental Status: []Client alert and oriented, eye contact good, neatly dressed, motor activity appropriate, speech normal rate and tone, mood euthymic, congruent affect, thoughts linear and intact, no evidence of delusions or hallucinations. Client Response/Progress/Benefit: []Client engaged participant in session as evidenced by client listening attentively to others and providing input during session. Client worked with the group to further review ways in which unmanaged stress can manifest. Client reported when he does not manage his stress well client restless, agitated, isolative, and has poor sleep. Client actively listening during discussion about the 4 A's of managing stress. Client able to give different strategies for all of the A's and connect it back to his life. Client reported he wants to practice the skill avoid unnecessary stressors by practicing saying no when he cannot take on more tasks. Client shared this will help him because in the past he has overcommitted which further increases anxiety and leads to guilt when he cannot accomplish everything. Client seemed to benefit from increased awareness of the impact of stress on mental health and increasing repertoire of stress management strategies. Client to continue IOP tx to further reduce anxiety, increase confidence, and decrease avoidance behaviors. Narrative Note: []
--- NOTE | 2019-09-06 09:05 | BH.SGPN.GN ---
Behaviors/Verbalizations/Mental Status: []Client alert and oriented, casually dressed and groomed. Eye contact fair. Motor activity appropriate. Speech within normal limits. Affect congruent, mood euthymic. Thoughts linear, logical, no signs of hallucinations or delusions. Reviewed client?s symptom tracker, no signs of suicidal ideation, plan, or intent as of 09/06/19. Client Response/Progress/Benefit: []Client responded well to session, attentive and listening to peers. Client reports feeling upbeat today. Client shared he has been feeling more connected and enjoying things he used to enjoy which is a significant win today. Client shared he has been exercising more at home and he has been trying to eat healthier. Client stated he notices positive impacts on his mental health when he eats healthier and exercises. Client reported his stressor today is that his family is getting stir crazy for the ongoing alf in place order due to COVID-19. Client stated he has been able to joke about this with his sister and client shared he wants to have more alone time. Encouraged to communicate this with his family and client was receptive to this. Appeared to benefit from connecting with peers and reflecting on healthy changes he has made recently. Progress noted in client's report of reduced depressive symptoms. Will continue IOP tx to decrease social anxiety that continues to interfere with client's ability to function at his baseline. Narrative Note: []
--- NOTE | 2019-09-06 10:16 | BH.SGPN.GN ---
Behaviors/Verbalizations/Mental Status: []Client alert and oriented, casual dress, hygiene tended to. Eye contact good. Motor activity appropriate. Speech within normal limits. Affect congruent, mood anxious. Thoughts linear, logical, no signs of hallucinations or delusions. Client Response/Progress/Benefit: []Pt semi-active participant as evidenced by pt providing limited input during discussion however, did appear to listen attentively to others. Pt worked cooperatively with group to identify how we define ourselves which included: upbringing, societal expectations, our abilities, accomplishments, failures, education, and material things. Pt reported stigma doesn?t just come from what others think, it can come from ?our own head?. Pt worked with group to identify that stigma can keep people from: connecting with others, enjoying the moment, going after a job or goals, and asking for help. Pt seemed to benefit from increased awareness of how mental health stigma can impact progress. Pt to continue IOP continue utilization of healthy coping, challenge distorted thoughts and prevent decompensation. Narrative Note: []
--- NOTE | 2019-09-07 09:00 | BH.SGPN.GN ---
Behaviors/Verbalizations/Mental Status: []Client alert and oriented, casual dress, hygiene tended to. Eye contact good. Motor activity appropriate. Speech within normal limits. Affect congruent, mood euthymic, slightly anxious. Thoughts linear, logical, no signs of hallucinations or delusions. Client Response/Progress/Benefit: []Pt responded well to session as evidenced by pt listening attentively to others and openly sharing thoughts and feelings. Pt reported mental health positive as feeling more energized the last few days. Pt stated overall in the last week he has been feeling more content and happier with what he is accomplishing. Pt reported he has been working on reducing his expectations of self, which he has found to be helpful. Pt shared he still has the thought that he could be doing more, but recognizes this is a irrational thought. Pt stated his current stressor is feeling a little guilty for forgetting to call his grandparents back two days ago. Pt stated he is trying to challenge his thoughts because he recognizes he can call them today. Progress noted with pt working on setting realistic expectations for self instead of trying to achieve perfection. Pt to continue IOP to maintain gains, continue using healthy coping and prevent decompensation. Narrative Note: []
--- NOTE | 2019-09-07 10:11 | BH.SGPN.GN ---
Behaviors/Verbalizations/Mental Status: []Pt eye contact good, casually dressed, motor activity appropriate, speech normal rate and tone, mood anxious, congruent affect, thoughts appearing to indicate rumination, no evidence of delusions or hallucinations. Pt at times struggling to remain focused due to being distracted by self/own thoughts. Client Response/Progress/Benefit: []Client was a semi-active participant AEB completing worksheet and listening attentively to peers. He provided input throughout though at times struggled with being distracted by his own thoughts and appeared anxious. Despite some difficulties in concentration, client did well to work with the group to define anger and its causes, as well as the potential consequences of unhealthy management of anger. These included: losing relationships, guilt, damaged property, increased rumination, and other?s avoiding us. Worked with group to review anger responses and shared that her common anger response includes: stiffening up, a more intense tone of voice, cursing, ignoring things, and shutting down. Client appeared to benefit from psychoeducation on the negative impacts of unmanaged anger and increasing self-awareness of own anger signs. Progress noted as client reports increased ability to identify healthy coping and thought challenge skills as well as begin implementing these skills. Will continue IOP tx to prevent decompensation, promote healthy change behaviors, and improve mood stability. Narrative Note: []
--- NOTE | 2019-09-07 11:08 | BH.SGPN.GN ---
Behaviors/Verbalizations/Mental Status: []Client alert and oriented, neatly dressed and groomed. Eye contact fair. Motor activity appropriate. Speech quiet, withdrawn from discussion unless prompted. Affect constricted, mood anxious. Thoughts linear, logical, no signs of hallucinations or delusions. Client Response/Progress/Benefit: []Client was using active listening, but he appeared somewhat withdrawn during group unless prompted. Client contributed to the continued discussion of how people express anger as well as the underlying emotions of anger. Client reported his underlying emotions to anger often include; disappointment, sadness, guilt, anxiety, and feeling overwhelmed. Client helped the group identify common warning signs of anger such as; feeling hot, tense, headaches, and restlessness. Group brainstormed with group healthy coping skills to help manage anger which included: mindfulness, deep breathing, angry dancing, going outside, and progressive muscle relaxation. Client selected spending time outside as his coping skill to manage anger. Client appeared to benefit from brainstorming with the group potential strategies to manage anger in healthy ways. Recommended continued IOP to prevent decompensation of social anxiety and to reduce distortions that reinforce mental health symptoms. Narrative Note: []
--- NOTE | 2019-09-08 09:10 | BH.SGPN.GN ---
Behaviors/Verbalizations/Mental Status: []Client alert and oriented, appropriately groomed and casual in appearance. Eye contact good. Motor activity appropriate. Speech within normal limits. Affect congruent, mood anxious and dysthymic. Thoughts linear, logical, no signs of hallucinations or delusions. Reviewed daily symptom tracker and client reports suicidal ideation at a rate of 1/0 which is consistent with baseline, denies, plan, or intent at this time. Will meet up with individual therapist to further assess. Client Response/Progress/Benefit: []Client receptive of session, actively engaged throughout AEB attentively listening to others and openly processing with the group. He reported his emotion for the day is ?neutral? as he feels the ?good and bad are evening out?. Client shared he has had ?a rough few days? as he has been struggling more with intrusive self-deprecating thoughts. Client explained that this has made it a little more difficult to be in the present moment as a result. Client did well to identify current mental health wins and indicated that one win was challenging himself to use skills he has learned to challenge his thoughts and continue to focus on the positives rather than fixate on his anxious thoughts. Client expressed struggling some with this but feels he is making progress in managing anxiety. Receptive from support of the group. Client noted that another win is continuing to reach out to his supports. Appeared to benefit from group support and identifying his areas of progress in ability to work through distorted thoughts. Recommended continued IOP tx to further reduce anxiety and depression, reduce intrusive thoughts impacting self-esteem, and prevent decompensation. Narrative Note: []
--- NOTE | 2019-09-08 10:29 | BH.MDN ---
Multi-Disciplinary Note - Note 45-min Individual Time Started:: 10:30 Date: 09/08/19 Purpose of session/treatment goals addressed:: The purpose of this session was to address current symptoms, stressors, and application of coping skills. Another goal was to challenge and reframe distortions reinforcing social anxiety and low self-esteem. Eye Contact:: Fair Motor Activity:: Appropriate Appearance:: Neat Speech:: Soft Mood:: Anxious, Dysthymic Affect:: Constricted Thoughts:: Linear, Logical, No evidence of hallucinations/delusions noted Staff Interventions:: Therapist used active listening and open-ended questions to gather client's current symptoms, stressors, and triggers to most recent increase in anxiety. Therapist reviewed client?s homework and processed client?s responses. Therapist helped client process a recent trigger and identify the cognitive distortions that were reinforcing depressive and anxious cycles. Therapist assisted client in challenging distortions that reinforce anxiety and avoidance behaviors and reframing these thoughts. Therapist provided psychoeducation on core beliefs and discussed the benefits of practicing positive self-talk to combat negative core beliefs. Therapist gave client homework to practice thought challenging and identify three things he did well each day. Client Response:: Client responded well to session, open to meeting with therapist. Client shared he has been struggling since group yesterday. Client reported he said something in group and then spent the rest of the day and night ruminating that he offended someone. Therapist and client processed this trigger and client's distortions. Client shared I've just been doubting everything I say now. Client receptive to thought challenging and reframing self-doubt and other distorted thinking. Client shared he has been trying to reframe thoughts and look at the evidence against his distortions, he just had a hard time yesterday. Client learned about core beliefs and connected with the core belief of I'm not good enough. Client stated he has a hard time giving himself credit, accepting compliments, and acknowledging strengths. Client reported because of this his self-doubt often is in the forefront of his mind. Client identified his self-doubt language sharing, I say I guess, I don't know, and maybe a lot. Client receptive to gentle challenging from therapist when client uses this language. Receptive to practicing thought challenging and identifying positives each day. Client also responded well to learning about intrusive thoughts which helped client normalize his anxious thoughts rather than inclusion special education teacher himself for them. Risks/Concerns:: Client denies any suicidal ideations, plan, or intent as of 09/08/19. Progress Toward Goals/Plan:: Client is demonstrating progress towards treatment goals as shown by his report of reduced anhedonia and isolation. Client has also been showing positive strides to manage his social anxiety, as client engaged in some of his fear ladder goals last week. However, client currently reports an increase in anxiety and anxious thoughts from a trigger that happened yesterday. Client continues to endorse daily anxiety, social anxiety, avoidance behaviors, and negative thoughts. Receptive to continuing to face anxious situations and understands that avoidance only reinforces anxiety. Client will continue IOP tx to improve daily functioning that has been impaired by anxiety, prevent further decompensation, and improve ability to combat distortions. Time Stopped:: 11:12
--- NOTE | 2019-09-08 11:18 | BH.SGPN.GN ---
Behaviors/Verbalizations/Mental Status: []Client alert and oriented, neatly dressed and groomed. Eye contact fair. Motor activity appropriate. Speech within normal limits. Affect constricted but improved from previous session, mood anxious. Thoughts linear, logical, no signs of hallucinations or delusions. Client Response/Progress/Benefit: []Client was an active participant in group discussion and activity, did well to follow instructions and manage anxiety during the activity. Engaged during activity and provided ideas on how to cope with internal barriers that keep clients stuck from moving towards goals. Barriers identified by the group included: lack of motivation, rumination, anxiety, negative thinking, limited supports, and lack of confidence. Strategies identified for overcoming these barriers included: meditation, strengthening old supports, thought challenging, opposite action, and positive self-talk. Client reported he wants to work on overcoming his barrier of social anxiety and negative thinking by practicing thought challenging. Client shared he wants to practice self-reflection and remind himself why his distortions are unrealistic. Benefited from group by identifying obstacles and solutions to desired reality. Client has been showing progress with applying thought challenging and opposite action in his daily life. Will continue IOP tx as client continues to struggle with social anxiety that impacts client?s social and educational functioning. Narrative Note: []
--- NOTE | 2019-09-13 09:06 | BH.SGPN.GN ---
Behaviors/Verbalizations/Mental Status: []Client alert and oriented, appropriately groomed and casual in appearance. Eye contact good. Motor activity appropriate. Speech within normal limits. Affect congruent, mood euthymic, anxious. Thoughts linear, logical, no signs of hallucinations or delusions. Reviewed daily symptom tracker and client denies suicidal ideation, plan, or intent at this time. Client Response/Progress/Benefit: []Client actively engaged in session AEB attentively listening to others and openly processing with the group. Reported emotion for the day is ?a little upbeat? and indicated that this is due to feeling more confident today and experiencing fewer ruminating thoughts. Client did well to identify current mental health wins and indicated that one win was continuing to make progress with identifying and challenging distortions as they occur. Shared using thought challenging and reminding himself challenge unrealistic expectations as well as celebrate accomplishments. Client indicated that another win is making some progress regarding getting out and being more active. He discussed spending more time running which is something he did in the past. Noted his stressor for the day as continuing to worry about remembering to effectively apply all the skills he is learning. Appeared to benefit from group support and structure. Recommended continued IOP tx to increase anxiety management, improve coping skill application, and prevent decompensation.? Narrative Note: []
--- NOTE | 2019-09-13 10:15 | BH.SGPN.GN ---
Behaviors/Verbalizations/Mental Status: []Client alert and oriented, casually dressed and groomed. Eye contact fair. Motor activity appropriate. Speech within normal limits. Affect constricted, mood euthymic and anxious. Thoughts linear, logical, no signs of hallucinations or delusions. Client Response/Progress/Benefit: []Client responded well to session, attentive and providing input to discussion. Client reported he connects with quote reporting it is important to set boundaries to promote mental health, but it is not easy to set boundaries. Client shared it is hard for him to set boundaries because he does not like conflict. Group identified the benefits to setting boundaries as well as the consequences of not setting healthy boundaries. Participated in the discussion of benefits of setting boundaries which included; feeling happier, less negative thinking, avoidance of toxic people, and ability to manage mental health better. Client engaged during discussion of the different types of boundaries and able to identify examples of each. Client seemed to benefit from increased awareness of how poor boundaries can negatively impact mental health. Progress noted as client reports reduced depressive symptoms and he was more vocal today during discussion. Will continue IOP tx to further decrease anxiety and combat distortions that reinforce self-doubt. Narrative Note: []
--- NOTE | 2019-09-13 11:17 | BH.SGPN.GN ---
Behaviors/Verbalizations/Mental Status: []Client alert and oriented, casually dressed and groomed. Eye contact fair. Motor activity appropriate. Speech within normal limits. Affect constricted, mood anxious. Thoughts linear, logical, no signs of hallucinations or delusions. Client Response/Progress/Benefit: []Client responded well to session, taking notes and participating during the activity. Client engaged in the boundary self-assessment activity and participated in discussion to process the activity. Client connected with others who reported they struggle with setting boundaries and client stated ?I don?t even know my boundaries.? Client attentive during psychoeducation on the boundary setting styles and he shared belief he uses the porous boundary setting style because he has a difficult time saying no. Client stated he wants to become more flexible in his boundary setting to promote self-care. Client wants to become more flexible by reflecting on what his needs and boundaries are, so client can verbalize those needs to others. Progress noted in client?s report of improved mood and application of thought challenging. Will continue IOP tx to further decrease social anxiety and continue to combat distortions. Narrative Note: []
--- NOTE | 2019-09-13 11:22 | PCM.BH.PN_ITS ---
Progress Note Progress Note: History of Present Illness/Interim History: [] The patient is a 24-year-old single male that is being seen in follow-up at the [facility] behavioral health IOP program. He is being treated for depression and anxiety. I last saw the patient about 1 month ago. Franky feels he is doing much better overall in the past few weeks. He feels the IOP program is really benefiting him and he is learning valuable skills to cope with his life. He says his panic attacks have decreased and he has had less than 3 in the past 2 weeks. His mood is much better and he is less down and when he does have down periods he is able to work through them. He said he had maybe fleeting suicidal thoughts once in the last 2 weeks. These were not active thoughts and he had no plan. He denies any homicidal ideation, hallucinations or delusions. He denies any thoughts of . He is only using his Vistaril once a day or less now. His sleep has improved and is much better and is getting 7 to 8 hours a night. He has been compliant with his medications. 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 He also works part-time and attends this IOP program and his feels he is functioning pretty well. He did not get his blood work drawn yet for his TSH and vitamin D and agrees to do that soon. He has started exercising regularly by running on his home elliptical program trainer. Current Psychiatric Medications: [] Vistaril 25 mg p.o. about once a day as needed for anxiety; Lexapro 20 mg p.o. daily (x1 year) Mental Status Examination: [] The patient is a 22-year-old male who is casually dressed and groomed with good hygiene. He is wearing a cloth mask as is required due to the coronavirus pandemic. He has good eye contact and has no psychomotor agitation or retardation. He is cooperative and pleasant during the interview. His thought processes are goal-directed and organized. His thought content: Evidence of fleeting suicidal ideation about once in the past 2 weeks. No evidence of active suicidal ideation, hallucinations, delusions or homicidal ideation. No evidence of passive thoughts of . Judgment is intact. Insight is good. Impulsivity low. 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 Plan: [] The patient will continue the IOP program as the structure, support, individual and group therapy will hopefully prevent worsening of his symptoms. He felt safe during the interview and if at any time he does not feel safe he will let us know or go to the emergency room. The risk, options, possible complications and side effects of the medication were discussed with the patient and he understands and accepts these. He will continue his current medication regimen as no changes were made today. He will continue exercising on his elliptical program trainer. He agrees to get his blood drawn soon for vitamin D and TSH. I will see the patient in 1 month or as needed. Patient said he did not need any refills on his prescriptions.
--- NOTE | 2019-09-14 09:01 | BH.SGPN.GN ---
Behaviors/Verbalizations/Mental Status: []Client alert and oriented, casual dress, hygiene tended to. Eye contact fair. Motor activity appropriate. Speech within normal limits. Affect could not be assessed due to requirement of needing to wear a mask to prevent spread of COVID-19. mood euthymic, slightly anxious. Thoughts linear, logical, no signs of hallucinations or delusions. Client Response/Progress/Benefit: []Pt responded well to session AEB pt sharing thoughts and feelings openly with group and listening attentively to peers. Pt identified mental health positive as setting a boundary with his family to not do his laundry and to leave his room alone. Pt stated he was frustrated when he found out his family accidently shrunk his clothes, despite him telling them in the past to not do his laundry. Pt reported he was anxious prior to setting the boundary, but once he did it he was happy for not avoiding. Pt stated additional mental health positive as spending time on doing a fun video editing project which made him laugh a lot. Pt identified current emotion as upbeat and optimistic. Progress noted with pt doing the anxious thing by setting a boundary with his family versus avoiding. Pt to continue IOP to continue use of healthy skills, reduce avoidance of anxiety provoking situations and prevent decompensation. Narrative Note: []
--- NOTE | 2019-09-14 11:18 | BH.SGPN.GN ---
Behaviors/Verbalizations/Mental Status: [] Client alert and oriented, casually dressed and groomed. Eye contact fair, client closing eyes at some points in discussion. Motor activity appropriate. Speech within normal limits. Affect congruent to topic being discussed, mood depressed. Thoughts linear, logical, no signs of hallucinations or delusions. Client Response/Progress/Benefit: []Pt semi-active participant AEB providing some input throughout discussion, taking notes, and actively listening. At times struggled with attention due to reporting feeling more fatigued today. Pt participated in group discussion regarding mental health benefits of change which included personal growth, increased confidence, a ?fresh start?, and improved mental health. Pt identified small personal changes to improve mental health as: improve self-talk, stop minimizing, and focus more on positives rather than negatives. Identified current barriers keeping pt from making those changes to be: lack of self-awareness, habit, and negative thoughts. Pt appeared to benefit from gaining awareness of personal changes that would improve mental health and the barriers keeping client stuck. Progress noted in increased insight of barriers and areas for change for improved mental health. Continue IOP to increase healthy coping skills, reduce anxiety, and prevent decompensation. Narrative Note: []
--- NOTE | 2019-09-14 11:18 | BH.SGPN.GN ---
Behaviors/Verbalizations/Mental Status: []Client alert and oriented, casually dressed and groomed. Eye contact poor. Motor activity appropriate. Speech within normal limits. Affect constricted, mood depressed. Thoughts linear, logical, no signs of hallucinations or delusions. Client Response/Progress/Benefit: []Client responded well to session, engaged by note taking, and occasionally contributing to discussion. Client shared with the group his barriers for making the changes he identified in the previous group. These barriers included; habit, fear of rejection, fear of disapproval, and fear of the unknown. Client did well to select one change he would like to make and identifying a SMART goal to help client make this change. Shared he wants to work on not minimizing his accomplishments and positives. Discussed that this change would help client increase self-esteem and feel more confident in his abilities to overcome challenges. Client?s SMART goal was to practice positive self-talk three times a day. Client benefited from working with group to identify strategies to overcome barriers to change and create a plan for implementing one small change promoting personal growth. Client recommended to continue IOP tx as he continues to struggle with negative thinking that reinforces anxiety and depression. Narrative Note: []
--- NOTE | 2019-09-14 14:49 | BH.MDN ---
Multi-Disciplinary Note - Note 45-min Individual Time Started:: 12:10 Date: 09/14/19 Purpose of session/treatment goals addressed:: The purpose of this session was to address current anxious thoughts, stressors, and symptoms. Another goal was to evaluate stressors and problem-solve solutions. Other topics included; acknowledging accomplishments. Eye Contact:: Fair Motor Activity:: Appropriate Appearance:: Casual Speech:: Appropriate Mood:: Depressed Affect:: Flat Thoughts:: Linear, Logical, No evidence of hallucinations/delusions noted Staff Interventions:: Therapist used active listening and open-ended questions to gather information on client's current stressors, symptoms, and worries. Therapist provided emotional support and encouraged client to verbalize his anxious thoughts. Therapist helped client organize his stressors by the size (based on level of anxiety) of the problems. Therapist then helped client identify strategies, supports, and steps client can take to manage these stressors. Therapist assisted client in using thought challenging to combat self-depreciation. Therapist used strengths perspective by having client identify accomplishments since admission. Therapist gave client homework to spent 10-15 minutes a night practicing healthy coping skills. Client Response:: Client responded well to session, open to meeting with therapist. Client reports somewhat struggling today due to feeling overwhelmed about all the goals he has. Client shared that he has so many things he wants to work on for his mental health. Because of this, client reports he feels like he will not accomplish them. Client able to start session by identifying things he has accomplished since [facility] admission. Client self-reported improvement in his sleep, affect, interest in doing things, and physical activity. Client shared he continues to struggle with thought challenging and reported sometimes it works, but then it doesn't. Client receptive to emotional support to normalize the difficulty of thought challenging. Client willing to write out his mental health goals and break them down to help client reduce anxiety. Client's goals included; reduce fear, increase confidence, increase comfort in social situations, challenging negative thoughts more effectively, and take more risks. While processing these goals, client able to recognize that some of these goals go together, and he has already made some strides towards progress in certain areas. Client also reflected that some of these bigger goals do not need to be addressed yet as working on the smaller goals will help client ultimately reach his bigger goals. Client receptive to making a goal to spend 10-15 minutes each night working on one of his mental health goals. Client shared belief this goal was more realistic, and he reported his anxiety decreased from the beginning of session. Risks/Concerns:: Client denies any suicidal ideations, plan, or intent as of 09/14/19. Progress Toward Goals/Plan:: Client is demonstrating progress towards treatment goals as shown by his report of improved sleep, increased exercise, and less anhedonia. Client has also been trying to practice thought challenging, but he continues to struggle with consistently reframing his anxious thoughts. Client continues to endorse daily anxiety, social anxiety, avoidance behaviors, and negative thoughts. Receptive to continuing to face anxious situations and understands that avoidance only reinforces anxiety. Is improving with identifying accomplishments, but he still reports frequent self-depreciating language. Client will continue IOP tx to improve daily functioning that has been impaired by anxiety, reduce avoidance behaviors, and improve ability to combat distortions. Time Stopped:: 13:00
--- NOTE | 2019-09-15 10:14 | BH.SGPN.GN ---
Behaviors/Verbalizations/Mental Status: []Client alert and oriented, casually dressed and groomed. Eye contact good. Motor activity appropriate. Speech within normal limits. Affect congruent, mood anxious, depressed. Thoughts linear, logical, no signs of hallucinations or delusions. Client Response/Progress/Benefit: []Pt was a semi-active participant as shown by some contribution to discussion and insight provided. Pt shared connecting to group topic of self-care. Pt mostly quiet and taking notes, but helped the group discuss benefits of self-care which included; improved self-esteem, increase patience, increased productivity, improved relationships. Pt participated in the discussion of the common myths about self-care including self-care is selfish, too much effort and time, and is self-indulgent. Client participated in the discussion on debunking of these myths. Client seemed to benefit from increased awareness of the importance of self-care and challenging common myths that prevent practicing self-care. Discussed at times struggling to remind himself to practice self-care out of fear of missing responsibilities. Client progress noted in client?s increased insight into self-care and willingness to engage. Will continue IOP tx to promote gains, improve anxiety management, as well as prevent decompensation. Narrative Note: []
--- NOTE | 2019-09-15 11:13 | BH.SGPN.GN ---
Behaviors/Verbalizations/Mental Status: []Client alert and oriented, neatly dressed and groomed. Eye contact fair. Motor activity appropriate. Speech within normal limits. Affect flat, mood anxious. Thoughts linear, logical, no signs of hallucinations or delusions. Client Response/Progress/Benefit: []Client receptive of session, engaged and contributing to discussion. Participated in further debunking myths about self-care and reinforcing the benefits of practicing consistent self-care. Engaged in small group discussion and attentive while others shared. Willing to complete worksheet activity and helped the group identify various types of self-care activities. Client completed self-assessment activity on the different areas of self-care and was able to identify current practices he uses and identify areas he can improve upon. Client reported he can improve his spiritual self-care. Client reported he wants to work on this area of self-care by practicing meditation out in nature this weekend. Client appeared to benefit from increasing awareness of how he can improve self-care balance. Progress noted as client was able to cope with an anxious producing situation during group without shutting down. Will continue IOP tx to further decrease social anxiety that prevents client from fully engaging with others. Narrative Note: []
--- NOTE | 2019-09-20 09:04 | BH.SGPN.GN ---
Behaviors/Verbalizations/Mental Status: []Client alert and oriented, appropriately groomed and casual in appearance. Eye contact good. Motor activity appropriate. Speech within normal limits. Affect congruent, mood anxious, euthymic. Thoughts linear, logical, no signs of hallucinations or delusions. Reviewed daily symptom tracker and client denies suicidal ideation, plan, or intent at this time. Client Response/Progress/Benefit: []Client actively engaged in session AEB attentively listening to others and openly processing with the group. Reported emotion for the day is ?neutral? and indicated that this is due to continuing to make progress in managing his anxiety levels. Expressed feeling more level as a result. Client able to identify current mental health wins and indicated that one win is continuing to challenge himself to ?do the anxious thing? and practice asserting his own boundaries with his family. Shared struggling with negative thoughts at times related to this but has overall been able to successfully continue to implement boundary setting skills. Shared feeling proud of himself as a result. Client indicated that another win is making an effort to continue applying relaxation skills in moments of increased anxiety. He expressed his current stressor is remembering to consistently apply these skills. Appeared to benefit from group support, challenging distorted thoughts, and structure. Recommended continued tx to increase mood stability, reduce depression, and prevent decompensation.? Narrative Note: []
--- NOTE | 2019-09-20 10:13 | BH.SGPN.GN ---
Behaviors/Verbalizations/Mental Status: []]Client alert and oriented, casually dressed and appropriately groomed. Eye contact good. Motor activity appropriate. Speech WNL. Affect congruent, mood anxious. Thoughts linear, logical, no signs of hallucinations or delusions. Client Response/Progress/Benefit: []Client active participant as evidenced by providing input throughout discussion. Client nodded during discussion of the quote and shared that although our thoughts can create negatives, they can also create positives. Client connected with the discussion about how distorted thought patterns can reinforce mental health symptoms and impact relationships. Client noted that he connects with mind-reading, black and white thinking, and disqualifying the positives. Client gave an example of a situation that occured at work recently that led to mind-reading and all or nothing thinking. Client reported at work he fears that if he makes one mistake people will think he is dumb. Client shared this thinking causes client to triple check his emails for mistakes and overwork himself. Client shared it takes awareness and practice to change distorted thinking. Appeared to benefit from increasing awareness of cognitive distortions and how they can impact emotions and behaviors. Will continue IOP tx to further decrease anxiety, improve daily functioning, and increase mood stability. Narrative Note: []
--- NOTE | 2019-09-20 14:27 | BH.MDN_ITS ---
Multi-Disciplinary Note - Note 30-min Individual Time Started:: 11:15 Date: 09/20/19 Purpose of session/treatment goals addressed:: The purpose of this session was to address current anxious thoughts, stressors, and symptoms. Another goal was . Other topics included; acknowledging accomplishments. Eye Contact:: Fair Motor Activity:: Appropriate Appearance:: Casual Speech:: Appropriate Mood:: Euthymic, Anxious Affect:: Congruent Thoughts:: Linear, Logical, No evidence of hallucinations/delusions noted Staff Interventions:: Therapist used active listening and open-ended questions to gather information on client's current stressors, symptoms, and application of coping skills. Therapist used strengths perspective to empower client on his generalization of coping skills and follow through with homework. Therapist taught client alternative thought challenging strategies to help client combat anxious thoughts that reinforce social anxiety and perfectionism. Therapist also helped client identify self-talk statements client can use to increase distress tolerance. Therapist encouraged client to continue homework from last week and to practice being more vocal in group. Client Response:: Client responded well to session, open to meeting with therapist. Client reported the past two weeks have been up and down but client feels like overall he is doing better than when he started IOP. Client reported he followed up with his homework from last week. Client shared spending 10-15 minutes each night on his mental health is much more realistic. Client stated last night he spent time practicing progressive muscle relaxation. Client shared he has been continuing to work on challenging distortions, but he finds himself worrying about what others think. Client and therapist discussed ways to increase distress tolerance and reduce the value client puts on other's opinions. Client willing to create a distress tolerance statement he could tell himself when he finds himself anxious or mind-reading. Client will tell himself so what if he makes a mistake or if he does something others might not like. Client will also practice challenging anxious thoughts by looking at the likelihood that his worries will actually occur. Client acknowledged that most of his worries are very unlikely to happen and even if they happen, client has the ability to cope through it. Risks/Concerns:: Client denies any suicidal ideations, plan, or intent as of 09/20/19. Progress Toward Goals/Plan:: Client is demonstrating progress towards treatment goals as shown by his report of improved sleep, increased exercise, and report of feeling more comfortable talking in the IOP group setting. Client continues to work on thought challenging to combat mind-reading and self-deprecation. Cli ent continues to endorse daily anxiety, social anxiety, avoidance behaviors of decreased frequency, and perfectionism. Receptive to continuing to work on practicing coping skills for 10-15 minutes a night and to face at least two anxious situations in group each time he attends. Client will continue IOP tx to improve daily functioning that has been impaired by anxiety, further reduce avoidance behaviors, and increase self-confidence. Time Stopped:: 11:49
--- NOTE | 2019-09-21 09:05 | BH.SGPN.GN ---
Behaviors/Verbalizations/Mental Status: []Client alert and oriented, casual dress, hygiene tended to. Eye contact fair. Motor activity appropriate. Speech within normal limits. Affect congruent, mood euthymic. Thoughts linear, logical, no signs of hallucinations or delusions. Reviewed client?s symptom tracker, no risk of suicidal ideation, plan or intent as of 09/21/19. Client Response/Progress/Benefit: []Client responded well to session, engaged and providing supportive statements to peers. Client reports feeling optimistic today. Client reported he continues to work on his mental health goals which has helped client make changes in his life. Client reported he told himself if I don't do anxious things, I won't change and get better and that this self-talk has help client face anxiety-producing situations. Client stated he is also looking forward to not having to work this afternoon, which gives client time to engage in different activities that he has been wanting to do. Client reported his stressor today is that grades are in for this semester which gives client anxiety. Client shared last night he was pretty anxious while thinking about this, but he was able to use self-care to reduce the intensity of that anxiety. Appeared to benefit from reflecting on his application of coping skills and ability to reduce anxiety with self-talk. Will continue IOP tx to promote gains, further decrease anxiety, and improve self-confidence. Narrative Note: []
--- NOTE | 2019-09-21 10:14 | BH.SGPN.GN ---
Behaviors/Verbalizations/Mental Status: [] Client alert and orient. Appearance casual and appropriately groomed. Speech an appropriate rate and tone. Motor activity WNL. Mood anxious, affect congruent. No evidence of delusion or hallucinations. Client Response/Progress/Benefit: [] Client responded well to session, attentive and engaged throughout, providing limited input and remained mostly passive in discussion. Listened and participated throughout group discussion defining conflict and the differences between internal and external conflict. Group reported the benefits of addressing conflict included: increased self-confidence, increased trust in relationships, having needs be met, and preventing further conflict from arising. Group additionally identified and discussed consequences of not addressing conflict in healthy ways which included: decreased self-esteem, damaged relationships, increased mental health symptoms, and additional stressors developing as a result. Benefited as client was able to identify current conflict style and how it impacts mental health. He noted often using avoiding and accommodating approaches to conflict in the past. Shared that doing so has resulted in negative self-talk and needs not getting met. Progress noted as shown by client?s report of improved mood and reduced use of avoidance in social settings. Will continue IOP tx to promote application of healthy anxiety management skills, reduce mental health sx severity, and further improve daily functioning. Narrative Note: []
== END 2019-09-21 23:59 ==
LOC: BHIOP 09:00
PROVIDERS: PCP Pediatrics; Referring Provider Psychiatry & Neurology Psychiatry; Visit Provider Psychiatry & Neurology Psychiatry
DX: F33.2 Major depressive disorder, recurrent severe without psychotic features (principal); F41.1 Generalized anxiety disorder; Z79.899 Other long term (current) drug therapy; R45.851 Suicidal ideations
CPT/HCPCS: H0035; 90832; 90834; 90853

== ENCOUNTER 2019-09-22 09:00 | Outpatient (RCR) | payer OTHER, SELFPAY ==
[2015-05-31 21:46] VITALS: BMI 19.3
[2019-09-22 00:19] VITALS: BP 130/78; PULSE 80; RESP 16; TEMP 36.5
--- NOTE | 2019-09-22 09:15 | BH.SGPN.GN ---
Behaviors/Verbalizations/Mental Status: []Client alert and oriented, casual dress, hygiene tended to. Eye contact good. Motor activity appropriate. Speech within normal limits. Affect congruent, mood euthymic. Thoughts linear, logical, no signs of hallucinations or delusions. Reviewed client?s symptom tracker, pt denies current suicidal thoughts or intention to date. Client Response/Progress/Benefit: []Pt responded well to session as evidenced by pt engaging in relaxation activity, sharing thoughts and feelings and listening attentively to peers. Pt reported a mental health positive was enjoying the rest of his day yesterday after IOP. Pt stated he played around with photoshop for fun, cleaned car, and got the supplies needed to put a wired internet connection into his bedroom today. Pt reported additional mental health positive as getting better grades on his college classes then he expected. pt stated he thought he would have to re-take several courses, but only has to re-take one course this summer in order to graduate. Pt reported earlier in the semester he messed his grades up because didn't go to class often due to anxiety. Pt identified feeling optimistic today. Pt showing progress with reporting improved mood. Pt to continue IOP to maintain gains, challenge distorted thoughts and prevent decompensation. Narrative Note: []
--- NOTE | 2019-09-22 10:19 | BH.SGPN.GN ---
Behaviors/Verbalizations/Mental Status: []Client alert and oriented, neatly dressed and groomed. Eye contact fair. Motor activity appropriate. Speech within normal limits, soft. Affect constricted, mood euthymic. Thoughts linear, logical, no signs of hallucinations or delusions. Client Response/Progress/Benefit: []Client was an engaged participant throughout group session AEB client contributing to discussion. Client reported ?we can?t control our negative thoughts, but we can respond different.? Discussed how sometimes people cope using unhealthy skills. Group identified unhealthy coping skills which included; avoidance, drinking, sleeping too much, eating too much, saying yes too often, and engaging in impulsive things. Group reported people turn to unhealthy skills because of habit and wanting a quick fix. Client agreed that learning healthy coping skills takes self-awareness and practice. Participated in the activity and discussed the benefits of having a balance of internal and external coping skills. Client seemed to benefit from increased awareness of importance of increasing healthy coping skills and consequences of utilizing unhealthy coping skills. Client will continue IOP tx to promote gains, further decrease distortions reinforcing anxiety, and improve daily functioning. Narrative Note: []
--- NOTE | 2019-09-22 11:19 | BH.SGPN.GN ---
Behaviors/Verbalizations/Mental Status: []Client alert and oriented, casually dressed and groomed. Eye contact fair. Motor activity appropriate. Speech within normal limits, quiet. Affect congruent, mood euthymic. Thoughts linear, logical, no signs of hallucinations or delusions. Client Response/Progress/Benefit: []Client responded well to session, connected with activity and participating in discussion. Agreed with peers that it is important to have a balance of internal and external coping skills, so we don't carry everything. Client contributed as the group discussed the different categories of coping skills which included distraction, emotional release, grounding, self-love, and thought challenging. Participated in creating a coping skills ?menu? for the five categories of coping skills. Client's coping skill menu included; exercising for distraction, relaxation techniques, watching funny videos, set realistic expectations, and combat distortions. He appeared to benefit from increasing repertoire of healthy coping skills. Client progress shown by his report of reduced avoidance behaviors, especially in group. Will continue IOP tx to further decrease social anxiety and improve mood stability. Narrative Note: []
--- NOTE | 2019-09-27 09:02 | BH.SGPN.GN ---
Behaviors/Verbalizations/Mental Status: []Client alert and oriented, casual dress, hygiene tended to. Eye contact good. Motor activity appropriate. Speech within normal limits. Affect constricted, mood euthymic. Thoughts linear, logical, no signs of hallucinations or delusions. Reviewed client?s symptom tracker, pt denies current suicidal thoughts or intention to date. Client Response/Progress/Benefit: []Pt responded well to session AEB pt sharing thoughts and feelings openly and listening attentively to peers. Pt reported mental health positive as noticing improvement and progress with his ability to manage stressors more effectively. Pt stated he has been working on not trying to be perfect all the time, which pt reported has helped decrease anxiety and unnecessary stress. Pt reported additional mental health win as feeling more comfortable and less anxious after verbalizing his thoughts or opinions to his family. Pt identified current stressor is continuing to go with the rational choice when making decisions versus going with what he wants to do. Progress noted with pt reporting improved ability to manage anxiety and reducing expectations of self. Pt to continue IOP to maintain gains, continue to challenge anxious thoughts, and prevent decompensation. Narrative Note: []
--- NOTE | 2019-09-27 10:16 | BH.SGPN.GN ---
Behaviors/Verbalizations/Mental Status: []Eye contact is good. Motor activity is appropriate. Appearance is casual. Speech is Appropriate. Mood is euthymic and anxious. Affect is constricted. Thoughts are linear and logical. No evidence of psychosis. Client Response/Progress/Benefit: [] Participated throughout group discussion, providing some input and listening attentively. Engaged during psychoeducation portion reviewing fixed mindset and willing to share insight with the group. Pt worked with group to identify how a fixed mindset can impact our mental health which included: decreased motivation, giving up when faced with a setback, not asking for help, low self-esteem, and isolation/avoidance. Pt identified one fixed thought he has is, People won?t like me?. Pt did well to recognize that this fixed thought leads to hopelessness, increased anxiety, and discomfort. Recognized that this fixed thought has resulted in not engaging in activities he enjoys and has led to isolating behaviors in the past. Benefited from group by increasing awareness of how one's mindset impacts mental health. Pt to continue IOP level of care to increase utilization of healthy coping skills, challenge distorted thoughts, and prevent decompensation. Narrative Note: []
--- NOTE | 2019-09-27 11:20 | BH.SGPN.GN ---
Behaviors/Verbalizations/Mental Status: []Client alert and oriented, neatly dressed and groomed. Eye contact fair. Motor activity appropriate. Speech within normal limits. Affect unable to gather due to client wearing a mask as part of COVID-19 protocol. mood anxious and euthymic. Thoughts linear, logical, no signs of hallucinations or delusions. Client Response/Progress/Benefit: []Client engaged during discussion and listened attentively to peers. Watched the video on growth mindset versus fixed mindset and participated in discussion. Client did well to apply cognitive restructuring to reframe previously identified fixed thoughts, transforming his fixed thought from previous group to a growth thought of ?it's likely some people will not like me, but if I give people a chance some will.? Client stated having a growth mindset makes client speak more freely and feel less anxious. Benefitted from discussing benefits of growth mindset and brainstorming strategies for prompting growth-mindset. Will continue IOP tx to further decrease cognitive distortions that reinforce social anxiety and to improve mood stability. Narrative Note: []
--- NOTE | 2019-09-28 09:06 | BH.SGPN.GN ---
Behaviors/Verbalizations/Mental Status: []Client alert and oriented, casual dress, hygiene tended to. Eye contact fair to good. Motor activity appropriate. Speech within normal limits. Affect constricted, mood anxious and euthymic. Thoughts linear, logical, no signs of hallucinations or delusions. Reviewed client?s symptom tracker, pt denies current suicidal thoughts or intention to date. Client Response/Progress/Benefit: []Pt responded well to session AEB pt sharing thoughts and feelings as well as listening attentively to peers. Pt reported mental health positive as being able to take time to complete his responsibilities yesterday so he would have time for self-care today. Pt identified additional mental health win as making plans to spend time enjoying his pool rather than focusing on what he thinks he ?needs to be doing?. Pt stated it felt positive to be able to make time for his own self-care. Pt stated current stressor is ongoing anxiety about continuing to make gains in anxiety management skills. Pt to continue IOP level of care to improve depression and anxiety management, continue to improve consistent use of healthy coping, and prevent decompensation. Narrative Note: []
--- NOTE | 2019-09-28 10:13 | BH.SGPN.GN ---
Behaviors/Verbalizations/Mental Status: []Client alert and oriented, casual dress, hygiene tended to. Eye contact fair. Motor activity appropriate. Speech within normal limits. Affect congruent, mood slightly anxious. Thoughts linear, logical, no signs of hallucinations or delusions. Client Response/Progress/Benefit: []Pt passive participant AEB pt providing limited input during group discussions, however did appear to listen attentively to peers and take notes throughout. Group identified the following makes up a support system include: pets, friends, self-accountability, family, medication, co-workers/HR, community agencies, therapist and other providers, group members, edmund talks, self-care/hobbies, inspirational videos, islam and spirituality. Pt worked with group members to identify barriers to using supports which included: not allowing supports to help, isolation, fear of the unknown, fear in general, distortions, don?t want to admit there is a problem, negative past experiences, mental health stigma, self-sabotage, negative thinking, and over-reliance on others. Seemed to benefit from increased awareness of different supports available and identifying benefits of social support. Pt to continue IOP to continue use of healthy coping, challenge anxious thoughts and prevent decompensation. Narrative Note: []
--- NOTE | 2019-09-28 11:14 | BH.SGPN.GN ---
Behaviors/Verbalizations/Mental Status: []Client alert and oriented, casually dressed and groomed. Eye contact fair. Motor activity appropriate. Speech within normal limits. Affect unable to gather due to wearing a mask as a precaution for COVID-19, mood anxious. Thoughts linear, logical, no signs of hallucinations or delusions. Client Response/Progress/Benefit: []Client an active participant AEB taking notes and sharing during the group discussion. Client participated in group discussion about the different types of support and benefits different types of support can provide. Client identified he would like to increase social supports in the area of self-help and personal by continuing to use positive self-talk at work and at home. Client stated he wants to do this by continuing to practice self-reflection each night and practicing mindfulness. Client shared this will help client feel more confident as he will challenge distortions that reinforce anxiety and doubt. Client reported his barrier to seeking this support is negative thinking, self-doubt, and fear of judgement. Appeared to benefit from identifying the type of support client wants to improve and identifying ways to work towards improving this support. Will continue IOP tx to promote gains in using healthy coping skills and to further decrease ruminations that reinforce anxiety. Narrative Note: []
--- NOTE | 2019-09-29 10:13 | BH.SGPN.GN ---
Behaviors/Verbalizations/Mental Status: []Client alert and oriented, casual appearance. Eye contact good. Motor activity appropriate. Speech within normal limits. Affect congruent, mood anxious, euthymic. Thoughts linear, logical, no signs of hallucinations or delusions. Client Response/Progress/Benefit: []Client responded well to session, contributing to discussion and engaged during the activity. Attentive during discussion on the quote and shared and example of how seeking mental health treatment was a change he initially avoided but then ended up being a positive change. Group identified the benefits of change which included: personal growth, improving mental health, reducing anxiety and depression, and getting unstuck. Worked with the group to identify barriers to change, which included: uncomfortable emotions, lack of motivation, doubt, mental health stigma, not prioritizing or making time for it, and negative thinking. Client participated along with group in activity where they identified and discussed the emotions related to change. Client challenged himself to step out of his comfort zone during activity. Benefited from increased awareness and understanding of emotions, benefits, and barriers related to change. Will continue IOP tx to further decrease intensity and duration of symptoms as well as reinforce healthy coping skills. Narrative Note: []
--- NOTE | 2019-09-29 14:05 | BH.MDN ---
Multi-Disciplinary Note - Note 60-min Individual Time Started:: 11:50 Date: 09/29/19 Purpose of session/treatment goals addressed:: The purpose of this session was to address current anxious thoughts, stressors, and symptoms. Another goal was to challenge unrealistic expectations of self and reframe distortions. Other topics included; values and confidence. Eye Contact:: Fair Motor Activity:: Appropriate Appearance:: Neat Speech:: Soft Mood:: Anxious, Dysthymic Affect:: Other - unable to gather due to client wearing a mask which part of the [facility] COVID precaution Thoughts:: Other - thought blocking at times, No evidence of hallucinations/delusions noted Staff Interventions:: Therapist used active listening and open-ended questions to gather information on client's current stressors, symptoms, and application of coping skills. Therapist used strengths perspective to empower client on his generalization of coping skills and reduced avoidance behaviors. Therapist used cognitive restructuring techniques to help client combat unrealistic expectations of self and reframe distortions that reinforce low self-esteem. Therapist encouraged client to continue homework from last week and to identify his core values. Client Response:: Client responded well to session, open to meeting with therapist. Client reports feeling better in some areas such as reduced avoidance behaviors, feeling happier, and exercising more. Client has also been using his calming skills to manage anxiety. Client shared he did something embarrassing on purpose the other day at work and told himself it's okay, it didn't do any harm. Client shared this helped him sit with his uncomfortable feelings rather than ruminate. Client also reflected on his improvement with contributing more during group sessions and doing more anxiety-producing things. However, client stated he continues to struggle with his confidence, especially in decision making. Client shared I've never really felt confident in anything. Client also reported he has unrealistic expectations for himself. Client stated he worries that if he is not productive all the time or if he does not work hard enough, he will end up like his dad. Client shared he often fears that he will have to work harder to not be associated with his dad. Because of this client fears decisions he makes and experiences guilt if he does not accomplish everything he wants. Able to recognize the double-standards he has for himself and begin to challenge these thoughts. Client acknowledged that realistically he is not responsible for his father's choices and that by being less productive one day will not turn him into his father. Receptive to ongoing challenging of these thoughts and identifying his top three core values. Risks/Concerns:: Client denies any suicidal ideations, plan, or intent as of 09/29/19. Progress Toward Goals/Plan:: Client is demonstrating progress towards treatment goals as shown by his report of improved sleep, increased exercise, reducing avoidance behaviors, and consistent application of coping skills. Client continues to work on thought challenging to combat distortions that reinforce anxiety, but he is struggling to challenge distortions that lead to unrealistic expectations. Client continues to endorse social anxiety, avoidance behaviors of decreased frequency, and low self-esteem. Receptive to continuing to work on practicing coping skills for 10-15 minutes a night and to face at least two anxious situations in group each time he attends. Client will continue IOP tx to promote gains, combat distortions, and increase confidence. Time Stopped:: 12:45
--- NOTE | 2019-10-04 09:06 | BH.SGPN.GN ---
Behaviors/Verbalizations/Mental Status: []Client alert and oriented, casual dress, hygiene tended to. Eye contact good. Motor activity appropriate. Speech within normal limits. Affect congruent, mood anxious and euthymic. Thoughts linear, logical, no signs of hallucinations or delusions. Reviewed client?s symptom tracker, pt denies current suicidal thoughts or intention to date. Client Response/Progress/Benefit: [] Pt responded well to session, engaged throughout and willing to openly process with the group. Pt indicated mood for the day as ?optimistic? and attributed this to beginning to see progress in his mental health and feeling more hopeful about his upcoming discharge this Wednesday. Pt did well to identify current mental health wins and noted one win as continuing to make progress on challenging his distorted thoughts. Indicated this is getting easier as it is much more of a habit for him now. Additional win noted as learning to be more comfortable with ?downtime? and remind himself he doesn?t have to always be accomplishing something. Pt went on to express a current stressor as maintaining gains made post IOP discharge. Receptive of and appeared to benefit from support of the group as well as identifying small areas of progress. Pt to continue IOP tx program to maintain stability, promote healthy change behaviors, as well as continue to improve ability to apply coping skills learned. Narrative Note: []
--- NOTE | 2019-10-04 10:15 | BH.SGPN.GN ---
Behaviors/Verbalizations/Mental Status: []Eye contact is fair. Motor activity is appropriate. Appearance is casual. Speech is soft. Mood is euthymic. Affect unable to gather due to wearing a mask for COVID-19 protection. Thoughts are linear and logical. No evidence of psychosis. Client Response/Progress/Benefit: []Client was an active participant AEB client contributing to discussion and participating in activity. Client connected with the quote sharing, we stay on the easy path because it's comfortable. Client gave the example of how avoidance is part of the easy path. Client helped the group discuss barriers that keep them stuck from choosing a healthier path to mental wellness. These barriers included; fear of failure, comfort, habit, family and friends, fear of change, and distortions. Client reported he finally made a significant change when the problem became too big. Group worked together to identify examples of personal pitfalls which included; lack of self-care, holding in emotions, avoidance, medication noncompliance, and not communicating with supports. Engaged during the activity and did well to manage own emotions throughout. Benefited from increased awareness on the impact that pitfalls can have on mental health. Will continue IOP tx to promote gains, improve mood stability, and further decrease distortions. Narrative Note: []
--- NOTE | 2019-10-04 11:15 | BH.SGPN.GN ---
Behaviors/Verbalizations/Mental Status: []Client alert and oriented, casual dress, hygiene tended to. Eye contact fair. Motor activity appropriate. Speech within normal limits. Affect congruent, mood euthymic and anxious. Thoughts linear, logical, no signs of hallucinations or delusions. Client Response/Progress/Benefit: []Client receptive of session, engaged throughout AEB client participating in discussion and listening to others. Processed activity with group and connected it to overcoming personal pitfalls in life. Client completed a worksheet where he identified personal pitfalls impacting mental health progress. Identified pitfalls as: distorted thought patterns, avoidance, negative thoughts, poor communication, ruminations, over-thinking, and lack of confidence. Attentive and contributing during psychoeducation on strategies to overcome pitfalls. Client stated he will work on the pitfall of fear of distorted thought patterns by challenging his thoughts. Pt stated he will give evidence as to why the thought is incorrect. Client to continue IOP level of care to maintain gains, continue use of healthy coping and prevent decompensation. Narrative Note: []
--- NOTE | 2019-10-05 09:07 | BH.SGPN.GN ---
Behaviors/Verbalizations/Mental Status: []Client alert and oriented, casual dress, hygiene tended to. Eye contact fair. Motor activity appropriate. Speech within normal limits. Affect congruent, mood slightly anxious. Thoughts linear, logical, no signs of hallucinations or delusions. Reviewed client?s symptom tracker, pt denies current suicidal thoughts or intention to date. Client Response/Progress/Benefit: []Pt responded well to session AEB pt openly sharing thoughts and listening attentively to others. Pt reported a mental health positive as having a positive time at work with being given new tasks and responsibilities. Pt shared additional mental health positive as spending time outside with his dog. Pt stated his mood improves when he spends time outside. Pt stated current stressor is tomorrow is his last day in [facility] and he has to make some decisions about if he wants to start working full-time. Pt reported there are several things he needs to make decisions about, but he wants to make sure he doesn't take on too much which would lead him to feel overwhelmed and freeze. Progress noted with pt reporting improved mood and ability to use skills to manage anxiety. Plan is for pt to discharge from [facility] tomorrow. Narrative Note: []
--- NOTE | 2019-10-05 10:12 | BH.SGPN.GN ---
Behaviors/Verbalizations/Mental Status: []Alert and oriented. Eye contact is fair to good. Motor activity is appropriate. Appearance is casual. Speech is Appropriate. Mood is euthymic. Affect unable to gather due to wearing a mask for COVID-19 protocol. Thoughts are linear and logical. No evidence of psychosis. Client Response/Progress/Benefit: []client was an active participant in group discussion and activity. Contributed to discussion on quote and shared ?growth happens because of adaptation.? Client connected with discussion on how growth can come from adverse situations if one has an open mind. Client shared ?ambition and thoughts can be a force.? Group worked together to come up with common negative forces in life which can hold them back from growth. These included; loss, accidents, stigma, and negative thoughts. Group then worked together to identify common positive forces which help us grow. These included; healthy coping skills, positive support, ambition, and managing emotions. Client participated in the group activity and did well to manage emotions and communicate with peers. Benefited AEB increased insight and awareness on the impact of negative and positive forces on mental wellness. Will continue IOP tx to promote gains and further decrease anxiety. Narrative Note: []
--- NOTE | 2019-10-05 11:19 | BH.SGPN.GN ---
Behaviors/Verbalizations/Mental Status: []Eye contact is good. Motor activity is appropriate. Appearance is casual. Speech is Appropriate. Mood is anxious and euthymic. Affect is congruent. Thoughts are linear and logical. No evidence of psychosis. Client Response/Progress/Benefit: []Pt was an engaged participant in activity as evidenced by pt providing input, asking questions, and attentively listened to others. Group worked together to come up with common negative forces in their lives which can hold them back from growth. Pt identified personal negative forces impacting progress include: anxiety, negative thoughts, lack of boundaries, avoidance, and self-doubt. Group then worked together to identify common positive forces which help us grow. Pt personal positive forces included: Healthy coping skills, positive supports, a desire to feel ?better? and more relaxed, as well as challenging negative thoughts. Pt was attentive during psychoeducation on the importance of utilizing many aspects of positive forces to help one grow. Identified that he could enhance current positive forces by practicing the skills he has learned more regularly. Benefited from group with increased insight and awareness on the impact of negative and positive forces on mental wellness. Narrative Note: []
--- NOTE | 2019-10-05 15:22 | BH.MDN ---
Multi-Disciplinary Note - Note 30-min Individual Time Started:: 12:15 Date: 10/05/19 Purpose of session/treatment goals addressed:: The purpose of this session was to review client's progress and review strategies that will promote mood stability and gains made in IOP. Another goal was to discuss discharge recommendations and process any current stressors. Eye Contact:: Good Motor Activity:: Appropriate Appearance:: Neat Speech:: Appropriate Mood:: Euthymic Affect:: Congruent Thoughts:: Linear, Logical, No evidence of hallucinations/delusions noted Staff Interventions:: Therapist used open-ended questions to explore client's thoughts on personal progress. Therapist also provided emotional support and helped client problem-solve current stressors. Therapist reviewed supports and coping skills with client to promote gains and prevent setbacks. Therapist discussed aftercare plan with client and used strengths-perspective to empower client on the goals client has accomplished. Therapist discussed the benefits of ongoing maintenance and use of daily coping skills. Therapist gave client a quote collage for closure. Client Response:: Client responded well to session, open to meeting with therapist. Client shared he is ready for his last day of IOP and reports that his mood has improved significantly since starting IOP. Client reviewed personal progress and shared that his depression has decreased, he has been avoiding situations that make him anxious less, he is more assertive, he is able to challenge distortions more often, and he has found more things enjoyable. Client also reflected on coping skills that will help him maintain gains made in IOP. Client's skills included; challenging negative thoughts, positive self-talk, relaxation techniques, boundary setting, assertive communication, exercise, and doing the anxious thing. Client reported he is somewhat concerned about his ability to maintain a balance once he leaves IOP. Client shared in the past he has taken on too much at once and then he falls into a vicious cycle. Client and therapist discussed costs and benefits of taking on more responsibilities post IOP discharge. Client acknowledges that he has been able to get better by taking time to practice his coping skills and not overwhelming himself. With this in mind, client recognizes the benefits of not rushing into taking on more responsibilities at this time. Client wants to continue working on his mental health by participating in aftercare and continuing with outpatient counseling. Risks/Concerns:: Client denies any suicidal ideations, plan, or intent as of 10/05/19. Reports. I feel so much better since starting [facility]. Progress Toward Goals/Plan:: Client has responded well to treatment and has made great progress while in [facility]. Client self-reports significant improvements in his mood and outlook since admission. Client also reports increased ability to sit with uncomfortable situations, reduced anxiety and avoidance, more positive self-talk, significantly fewer depressive symptoms, and finding more reg in life. Client still has difficulty challenging negative self-talk at times, but he continues to work on reframing distortions and being kinder to himself. Will discharge from [facility] tomorrow and continue with outpatient treatment and [facility] aftercare program. Time Stopped:: 12:45
--- NOTE | 2019-10-11 09:05 | BH.SGPN.GN ---
Behaviors/Verbalizations/Mental Status: []Client alert and oriented, casually dressed, appropriate grooming. Eye contact fair. Motor activity appropriate. Speech within normal limits. Affect congruent, mood euthymic, slightly anxious. Thoughts linear, logical, no signs of hallucinations or delusions. Reviewed client?s symptom tracker, pt denies current suicidal thoughts or intention to date. Client Response/Progress/Benefit: [] Patient responded well to session as evidenced by him listening attentively to others and sharing thoughts and feelings. Patient identified mental health positive as today is his last day and IOP. Identified feeling optimistic that he will be able to continue to utilize his skills and improve. Patient identifies treatment progress since starting IOP to include having more energy, being motivated to, feeling less anxious in certain situations, and decreased avoidance. Patient shared of a situation at work in which he overheard coworkers saying things about him which he knows are untrue. Patient stated he in the past would have ruminated on what was being said about him and believed that he had done something wrong. Patient reported however he was able to save the uncomfortable and utilize his thoughts on skills to manage the situation more effectively. Patient has progressed with decreased anxiety, improved awareness of unhealthy thought patterns and improve daily functioning. Patient is to discharge from IOP today. Narrative Note: []
--- NOTE | 2019-10-11 10:15 | BH.SGPN.GN ---
Behaviors/Verbalizations/Mental Status: []Eye contact is good. Motor activity is appropriate. Appearance is casual. Speech is Appropriate. Mood is anxious, euthymic. Affect is congruent. Thoughts are linear and logical. No evidence of psychosis. Client Response/Progress/Benefit: []Pt was an active participant in group discussion and activity, providing input throughout. Pt worked with peers on defining what goals are and indicated that ?goals are important in being able to see the progress you?ve made?. Brainstormed with the group the benefits of goal-setting which included: increased motivation, feeling accomplished, gives us a sense of direction, and increase positive thinking. Pt noted connecting with personal goal setting benefit of: seeing personal progress and motivating us to keep making that progress. Able to provide feedback during psychoeducation on SMART goals. Pt appeared to benefit from learning the mental health benefits of setting goals that are specific, measurable, attainable, relevant, and time-specific. Will discharge from [facility] tx on this date due to progress made and begin the aftercare program. Narrative Note: []
--- NOTE | 2019-10-11 11:14 | BH.SGPN.GN ---
Behaviors/Verbalizations/Mental Status: []Eye contact is good. Motor activity is appropriate. Appearance is neat. Speech is Appropriate. Mood is euthymic. Affect unable to gather due to wearing a mask as COVID protocol. Thoughts are linear and logical. No evidence of psychosis Client Response/Progress/Benefit: []Client was engaged and contributing to discussion, did well to develop a personal SMART goal. Client chose the goal; to spend 20-30 minutes outside 3-4 times a week. When asked why this goal was important and beneficial to client's mental health he stated it will increase his physical activity, improve mood, and make him feel calm. Identified the following barriers to completing this goal which included; weather, lack of time, and lack of energy. Identified solutions to barriers which included; planning ahead, paying attention to the weather, setting aside time, positive self-talk, and opposite action. Benefited from this group by developing a short-term SMART goal related to mental health. Will discharge from IOP today as client has made significant progress towards his treatment goals and no longer meets IOP level of care. Narrative Note: []
--- NOTE | 2019-10-11 12:27 | BH.AFTERPLAN ---
Aftercare Plan - Demographics Treatment End Date:: 10/11/19 Psychiatrist:: Katie Kelly Psychiatrist Office #:: [id number] [facility]/IOP Therapist:: Thuy Oreilly Therapist Phone #:: [phone] - Medications Home Medications: Home Medications Escitalopram Oxalate [Lexapro] 20 mg PO DAILY 08/09/19 Bupropion HCl [Wellbutrin Xl] 150 mg PO DAILY 90 Days #90 [id number] 08/16/19 - Plan Details Progress/Aftercare Plan Details:: Franky has shown such great strides while IOP and has gained so many coping skills. Franky has shown progress with implementing healthy coping skills to help better manage anxiety symptoms. Franky has demonstrated consistency in using thought challenging, relaxation techniques, and self-talk. Franky has been working on facing anxious situations rather than avoiding them which has helped him set boundaries and step out of his comfort zone. Franky has been consistently reporting a more positive mood, better sleep, and increased energy. Franky has also been working on communicating more assertively. Franky has increased self-awareness of cognitive distortions, negative core beliefs, and self-depreciation that reinforces self-doubt. Franky has been more active and able to find reg in the small things again which has brought more laughter as well. Franky has shown great progress in sitting with the uncomfortable, because he knows that?s where growth happens! Franky?s depressive symptoms decreased by 71% since his first day of IOP and his anxiety symptoms decreased by 55%. Overall Franky?s mental health symptoms decreased by 65% since his first day in the program. Way to go Franky! Strategies for Success:: 1. Challenge those thoughts!! Remember to catch yourself when you are being unrealistic with yourself or mind-reading. Look at the evidence against the thought. 2. Thoughts are thoughts not facts! 3. Continue to use positive self-talk! 4. [id number] is perfect, and it is okay to make mistakes. In fact, mistakes mean you are human and trying! You can be intelligent AND make mistakes. 5. Continue to practice relaxation strategies such as deep breathing and progressive muscle relaxation. 6. Boundaries and clear, assertive communication! 7. Continue to do the anxious thing! Remember avoidance only feeds anxiety. 8. Continue to be intentional with applying your coping skills and pushing yourself out of your comfort zone. 9. Continue to exercise and be active with your dog, self, and friends/family. 10. Give yourself credit and focus on your strengths, challenge self-doubt by reflecting on times you did things well or learned quickly. 11. Remember it is okay to not be productive all the time. Sometimes the best thing we can do is slow down and take a break. - Appointments Appointments/Referrals to Other Services:: 1. Follow up with aftercare group at [facility]. Start date is 10/12/19 at 2:00pm. 2. Follow up with Woody Paez at [facility]. 3. Follow up with your primary care physician for medication management.
--- NOTE | 2019-10-11 14:07 | BH.DS ---
Discharge Summary - Demographics Date of Admission:: 08/09/19 Discharge Date: 10/11/19 Presenting Problems at Admission:: Client is a 24-year-old male with a history of depression and anxiety. Client has a no previous psychiatric admissions. Client was referred to [facility] by his outpatient therapist due to limited benefit from outpatient counseling and worsening mental health symptoms. Client's mental health symptoms had impacted his ability to functioning in college. Client shared he was unable to perform academically and moved home from college. At admission, client endorsed a depressed mood, anhedonia, lack of motivation, fear, guilt about not performing well academically, isolative behaviors, ruminations, social anxiety, and avoidance behaviors. Client also endorsed poor sleep, poor appetite, low energy, and poor self-esteem. Client reported some fleeting suicidal ideations, but denied any active suicidal ideations, plan, or intent. Client had occasional panic attacks and severe social anxiety. Client reported numerous negative assumptions that reinforce low self-esteem. Client's symptoms were impacting his social, occupational, and educational functioning. 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 Client no longer meets criteria for [facility] level of care. - Treatment Progress During Treatment & Response: Client responded well to treatment as shown by his overall consistent attendance, active participation, and reduction of overall DSM-5 symptoms. Client was an active participate who contributed to discussions and took notes. Client demonstrated significant progress while in [facility] in reducing social anxiety and increasing confidence. When client began [facility] he was shy and did not contribute to discussions. By discharge, client was making jokes and contributing to group on a consistent basis. Client often connected with peers and provided supportive statements. In individual sessions, client was receptive to learning new coping skills and was engaged in his treatment. Client followed through with his homework which often involved client practicing thought challenging and engaging in anxiety-producing situations. Client?s high engagement in treatment is likely the cause of his significant progress. Per client?s report, he was consistently applying opposite action and reported progress in reduced depression and anxiety. Client also shared he was enjoying more things in life and was feeling more connected. Client self-identified his progress as better moods, better sleep, more energy, less avoidance, and feeling more connected. At discharge, client?s overall DSM-5 symptom scores decreased by 64%. Client?s DSM-5 scores for depression decreased by 71% and anxiety decreased by 55%. Additionally, at discharge client denied having any passive thoughts of or suicidal ideations. Issues Still to be Addressed:: Client has done well to reduce the intensity of his symptoms and improve his daily functioning, but he can benefit from continued counseling to reinforce healthy coping skills and further reduce social anxiety. Client has been working to challenge distortions, reduce avoidance behaviors, and increase his assertive communication skills. Client can benefit from ongoing work to improve confidence and self-esteem. Discharge Recommendations/Instructions:: Client was recommended to follow up with his outpatient therapist, Kait Baker at [facility]. Client was to schedule an appointment and let this therapist know the date. Client plans to have his PCP monitor his medications ongoing. Client plans to participate in [facility] aftercare program which he will begin tomorrow. Therapist will continue to follow up with client on his progress with scheduling outpatient therapy. Discharge Handout: Complete Discharge Handout with client on aftercare options and continuity of care.
== END 2019-10-11 14:00 | disposition home or self-care (01) ==
LOC: BHIOP 09:00
PROVIDERS: PCP Pediatrics; Referring Provider Psychiatry & Neurology Psychiatry; Visit Provider Psychiatry & Neurology Psychiatry
DX: F33.2 Major depressive disorder, recurrent severe without psychotic features (principal); F41.1 Generalized anxiety disorder
CPT/HCPCS: H0035; 90832; 90837; 90853

== ENCOUNTER 2019-10-12 14:00 | Outpatient (RCR) | payer OTHER, SELFPAY ==
--- NOTE | 2019-10-12 14:27 | BH.MTP_ITS ---
Master Treatment Plan - Patient Information Program Physician:: Dr. 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 - Objectives Objective #1 Stated Objective: Client will continue to consistently apply healthy coping ski lls to maintain progress made in IOP tx. Interventions: Through group therapy, client will review warning signs and triggers as well as healthy coping skills learned in IOP tx to successfully maintain gains while transitioning into outpatient therapy. Discharge Criteria: Client will have accomplished this goal when client's score on the DSM-5 cross-cutting measure has either maintained or reduced over a 12 week period. Target Date: 01/04/20 Review Date: 11/23/19 Status: open Objective #2 Stated Objective: Client will learn and utilize 2-3 maintenance strategies to prevent decompensation. Interventions: Through group therapy, client will be provided with education on healthy maintenance behaviors, relapse prevention techniques, and healthy coping strategies. Discharge Criteria: Client will have accomplised this goal when can report using at least 2 maintenance skills to prevent decompensation. Target Date: 01/04/20 Review Date: 11/23/19 Status: open
--- NOTE | 2019-10-13 14:06 | BH.SGPN.GN ---
Behaviors/Verbalizations/Mental Status: []Client alert and oriented, casual dress, hygiene tended to. Eye contact good. Motor activity appropriate. Speech within normal limits. Affect congruent, mood euthymic and anxious. Thoughts linear, logical, no signs of hallucinations or delusions. Client Response/Progress/Benefit: []Pt receptive of session, engaged throughout. Notes feeling ?optimistic? today as it is his first day in the aftercare program. Additionally, shared he was able to create a plan for the long weekend which he was worried about finding ways to fill his time. Receptive of discussion on personal accountability and it?s importance in maintaining mental health stability. Pt worked cooperatively with group to identify benefits of maintaining personal accountability. Engaged in discussion on different accountability styles and brainstorming strategies for improving ability to hold themselves accountable. Pt identified that for homework he would like to set ?the most annoying alarm in my phone? as an auditory reminder to hold himself accountable for working on current goals. Pt seemed to benefit from support from peers and increasing understanding of personal accountability benefits and strategies. Pt new to aftercare group so no progress noted. Pt to continue aftercare group to improve consistent use of healthy coping, maintain stability, and prevent decompensation. Narrative Note: []
--- NOTE | 2019-10-19 14:05 | BH.SGPN.GN ---
Behaviors/Verbalizations/Mental Status: []Client alert and oriented, casual dress, hygiene tended to. Eye contact good. Motor activity appropriate. Speech within normal limits. Affect unable to gather due to client wearing a mask for COVID protocol, mood anxious. Thoughts linear, logical, no signs of hallucinations or delusions. Client Response/Progress/Benefit: []Client responded well to session, attentive and engaged throughout. Client reported he has continued to be active by spending time outside and walking his dog. Client reported the coping skills he used this week to help him accomplish goals this week were; thought challenging, mindfulness, opposite action, and grounding. Client stated his stressor today is I had a bit of a rough week due to client's grandpa no doing well and having a lopez work load both at work and at home. Client recognized that he tends to fall into a pattern of taking on too much at once and reported he wants to set boundaries. Client participated in the discussion of making healthy choices and the barriers keeping clients from making healthy choices. Client identified his personal barriers to be time, unrealistic expectations, fear, and unmanaged emotions. Client reported he would like to make healthier decisions with eating healthier and saying asking for help. Client shared eating healthier improves client's energy levels and mood. Additionally, asking for help and saying no reduces client's frustration and gives him more time for self-care. Client attentive and contributing to discussion of strategies to improve healthy decision making. Client selected the strategy of setting aside time each night to reflect and process before saying yes as his game plan this week. Appeared to benefit from reflecting on application of coping skills, identifying barriers, and creating a game plan to improve healthy decision making skills. Narrative Note: []
== END 2019-10-22 23:59 ==
LOC: BHOG 14:00
PROVIDERS: PCP Pediatrics; Referring Provider Psychiatry & Neurology Psychiatry; Visit Provider Psychiatry & Neurology Psychiatry
DX: F33.2 Major depressive disorder, recurrent severe without psychotic features (principal); F41.1 Generalized anxiety disorder
CPT/HCPCS: 90853

== ENCOUNTER 2019-10-26 14:00 | Outpatient (RCR) | payer OTHER, SELFPAY ==
[2015-05-31 21:46] VITALS: BMI 19.3
--- NOTE | 2019-10-26 14:05 | BH.SGPN.GN ---
Behaviors/Verbalizations/Mental Status: []Client alert and oriented, casually dressed. Eye contact good. Motor activity appropriate. Speech within normal limits. Affect constricted, mood euthymic, slightly anxious. Thoughts linear, logical, no signs of hallucinations or delusions. Client Response/Progress/Benefit: []Pt responded well to session AEB pt providing input during discussion and listening attentively to peers. Pt reported he partially accomplished his goal from last week of taking time to engage in enjoyable activities and getting other tasks done. Pt stated he could have engaged in more enjoyable activities, but he at least spent time with a friend. 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 Pt reported he used the skill of sitting with the uncomfortable emotions to manage his anxiety as well as challenging his thoughts. Pt reported in the past the negative feedback would have been something he would have ruminated about for hours, but now can work through it. Pt engaged in discussion about self-love. Connected with others that engaging in self-love is not something she has been doing often. Pt worked with group to identify strategies to increase self-love. Pt reported he wants to work on self-love by stepping outside his comfort zone and trying something new. Pt seemed to benefit from reviewing treatment progress and stressors as well as learning about how to increase self-love. Pt to continue [facility] aftercare program to maintain treatment progress, continue use of healthy coping, and prevent decompensation. Narrative Note: []
--- NOTE | 2019-11-02 14:07 | BH.SGPN.GN ---
Behaviors/Verbalizations/Mental Status: [] Client alert and oriented, neat and casual dress, hygiene tended to. Eye contact fair to good. Motor activity appropriate. Speech within normal limits. Affect congruent, mood anxious and euthymic. Thoughts linear, logical, no signs of hallucinations or delusions. Client Response/Progress/Benefit: []Pt receptive of session, engaged throughout. Notes feeling optimistic today as he has been able to see progress in his overall ability to sit with the uncomfortable. Expressed this as his self-love goal from last week and shared using deep breathing and positive self-talk to aid in doing so. Receptive of discussion on self-talk and its influence in maintaining long-term mental health stability. Pt worked cooperatively with group to identify benefits of positive affirmations in improving self-talk and overall ability to better manage potential mental health setbacks. Engaged in discussion on barriers impacting our ability to use or believe affirmation statements, indicating his largest barrier is feeling embarrassed or uncomfortable when saying the affirmations. Connected with the strategies for improving effective creation and application of believable personal affirmations. Pt identified own personal affirmation statements he would like to begin using. Identified that he would like to improve comfort in regularly using positive self-talk statements. Progress noted in self-report of challenging himself to step outside his comfort zone and practice being in uncomfortable situations. Pt to continue aftercare group to improve consistent use of healthy coping, maintain stability, and prevent decompensation. Narrative Note: []
--- NOTE | 2019-11-09 14:05 | BH.SGPN.GN ---
Behaviors/Verbalizations/Mental Status: []Client alert and oriented, neatly dressed and groomed. Eye contact good. Motor activity appropriate. Speech within normal limits. Affect unable to gather due to client wearing a mask for COVID-19 protocol. mood euthymic. Thoughts linear and logical. No signs of hallucinations or delusions. Client Response/Progress/Benefit: []Client responded well to session, checked in using his GAPs worksheet. Client identified recent coping skills he has used to be thought challenging, affirmations, being assertive at work, and sitting with the uncomfortable. Client shared his stressor today is client has some things for work he needs to accomplish, but it's not a huge stressor. Client engaged well during the discussion of self-compassion. Client connected with the benefits of self-compassion and shared it is not always easy to practice, but it helps. Client participated in the activity of reframing an old experience using self-compassion. Client used the example I'm not good at responding to texts and calls. Client shared this thought in the past would lead to over-apologizing, anxiety, and avoidance. Client reframed this using self-compassion to I've been very busy and I don't expect other people to respond right away to me. Client reported this helps client feel less anxiety and easier to move forward. Client appeared to benefit from practicing self-compassion. Narrative Note: []
--- NOTE | 2019-11-16 14:25 | BH.TPR ---
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 Status of Current Problems and Symptoms: Client reports ongoing work-related stressors, some difficulty with assertively communicating his needs, and occasional ruminations. Problem #1 Problem Name:: Pt. will maintain or see a reduction in sx AEB client score on the DSM-5 Status of Goals:: Objective 1- complete with ongoing work encouraged. Client?s scores on the DSM-5 for depression have maintained since discharge. Client?s anxiety scores have decreased by 40% since admission to aftercare. Overall, client?s DSM-5 scores have decreased by 16%. Objective 2- complete with ongoing work encouraged. Client has been consistently reporting use of sitting with uncomfortable feelings, mindfulness, and thought challenging. Team Recommendations:: Recommended client continue IOP aftercare group in addition to attending regular outpatient counseling in order to maintain gains.
== END 2019-11-21 23:59 ==
LOC: BHOG 14:00
PROVIDERS: PCP Pediatrics; Referring Provider Psychiatry & Neurology Psychiatry; Visit Provider Psychiatry & Neurology Psychiatry
DX: F33.2 Major depressive disorder, recurrent severe without psychotic features (principal); F41.1 Generalized anxiety disorder
CPT/HCPCS: 90853

== ENCOUNTER 2019-11-23 14:00 | Outpatient (RCR) | payer OTHER, SELFPAY ==
[2015-05-31 21:46] VITALS: BMI 19.3
--- NOTE | 2019-11-23 14:05 | BH.SGPN.GN ---
Behaviors/Verbalizations/Mental Status: []Client alert and oriented, neatly dressed and groomed. Eye contact good. Motor activity appropriate. Speech within normal limits. Affect unable to gather due to wearing a mask for COVID-19 protocol, mood euthymic. Thoughts linear, logical, no signs of hallucinations or delusions. Client Response/Progress/Benefit: []Client responded well to session, receptive to feedback and sharing supportive statements to peers. Client reports multiple mental health wins today and no stressors. Client reviewed his GAPs and shared he has been working a lot on sitting with uncomfortable feelings and reaching out to supports. Client reports using thought challenging, assertive communication, and deep breathing. Client reports no stressors today and states it feels nice to bounce back. Client participated in the group discussion of maintenance and the benefits of creating a maintenance plan. Client contributed as the group discussed what components make up a maintenance plan. Client created his own maintenance plan for anxiety. Client identified warning signs which included decreased activity, isolation and avoidance, worsened mood, sleep issues, and racing heart. Client's coping skills included: exercise, making time with friends, eating healthy, grounding, breathing, and thought challenging. Client reported he can also talk with his supports and schedule more therapy sessions when he recognizes warning signs. Appeared to benefit from creating a maintenance plan to promote gains and prevent setbacks. Will continue aftercare next week. Narrative Note: []
--- NOTE | 2019-11-30 14:00 | BH.SGPN.GN ---
Behaviors/Verbalizations/Mental Status: []Client alert and oriented, casual appearance. Eye contact fair. Motor activity appropriate. Speech within normal limits. Affect congruent, mood euthymic, slightly anxious. Thoughts linear, logical, no signs of hallucinations or delusions. Client Response/Progress/Benefit: []Pt engaged in session as evidenced by pt openly sharing thoughts and feelings, listening attentively to others, and providing input throughout. Pt reported over the last week he accomplished his goal of engaging in maintenance skills. Pt stated he has been improving with being able to sit with the uncomfortable. Pt reported he has been reaching out to supports more often and getting more comfortable in social situations. Pt stated he has been applying grounding skills and challenging his distorted thought patterns. Pt engaged in discussion about benefits of self-care. Pt reported he believes he has been doing better with engaging in self-care since discharging from [facility]. Pt stated he is more socially active, more physically active, and engages in self-reflection. Pt stated for his self-care plan for the week he will engage in: watching funny movie, journaling, eating breakfast, making plans with a friend, writing a poem, and sitting by the pool to relax. Pt seemed to benefit from creating a self-care plan to increase consistent use of self-care. Progress noted with pt reporting improved social connections, decreased anxiety, and consistently applying skills. Pt to continue aftercare group to maintain gains, continue use of healthy coping, and prevent decompensation. Narrative Note: []
--- NOTE | 2019-12-07 14:07 | BH.SGPN.GN ---
Behaviors/Verbalizations/Mental Status: [] Client alert and oriented, neat and casually dressed. Eye contact good. Motor activity appropriate. Speech within normal limits. Affect congruent, mood euthymic and anxious. Thoughts linear, logical, no signs of hallucinations or delusions. Client Response/Progress/Benefit: []Pt responded well to session AEB pt providing input during discussion and listening attentively to peers. Providing more input than in prior groups. Pt reported he feels as though ?positive but a little frustrated? today and indicated that this is due to seeing progress but continuing to struggle with feeling his supports aren?t respecting his boundaries/need for privacy. Pt expressed he has been trying to continue to communicate with supports but feels guilty in doing so. Receptive of support from group. Pt did well to identify progress in his ability to continue practicing ?sitting with the uncomfortable? as well as using thought challenging and deep breathing during times he feels increased anxiety. Connected with others that engaging in self-advocacy can be difficult when it involves setting or maintaining boundaries with loved ones. Connected with fellow participants who indicated struggling with self-advocacy out of fears of disappointing others or being a burden. Pt worked with group to identify strategies to overcome barriers and increase ability to advocate for oneself. Pt reported he wants to work on improving self-advocacy by actively reminding himself ?I have the right to my own needs for personal space and time?. Pt seemed to benefit from reviewing treatment progress and skill application, as well as learning about how to increase self-advocacy. Pt to continue aftercare program to maintain treatment progress, continue use of self-accountability and healthy communication with supports, and prevent decompensation. Narrative Note: []
--- NOTE | 2019-12-14 15:05 | BH.MTP_ITS ---
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 Status of Current Problems and Symptoms: Client reports some ongoing work- related stressors, some difficulty with self-advocacy and saying no, and occasional ruminations with anxiety. Problem #1 Problem Name:: Pt. will maintain or see a reduction in sx AEB client score on the DSM-5 Status of Goals:: Client continues to demonstrate progress in aftercare AEB client's report of improved mood and functioning. Team Recommendations:: Recommended client continue IOP aftercare group in addition to attending regular outpatient counseling in order to maintain gains.
== END 2019-12-22 23:59 ==
LOC: BHOG 14:00
PROVIDERS: PCP Pediatrics; Referring Provider Psychiatry & Neurology Psychiatry; Visit Provider Psychiatry & Neurology Psychiatry
DX: F33.2 Major depressive disorder, recurrent severe without psychotic features (principal); F41.1 Generalized anxiety disorder
CPT/HCPCS: 90853; H0035

== ENCOUNTER 2020-01-04 14:00 | Outpatient (RCR) | payer OTHER, SELFPAY ==
[2015-05-31 21:46] VITALS: BMI 19.3
--- NOTE | 2019-12-28 02:01 | BH.SGPN.GN ---
Behaviors/Verbalizations/Mental Status: []Client alert and oriented, casual dress, hygiene tended to. Eye contact good. Motor activity appropriate. Speech within normal limits. Affect unable to assess due to client wearing mask per COVID-19 protocol, mood euthymic and anxious. Thoughts linear, logical, no signs of hallucinations or delusions. Client Response/Progress/Benefit: []Pt reported in the past week he has been working on being more social and practicing improving his ability to sit with the uncomfortable. Shared feeling he is making progress in this area and discussed that opposite action and thought challenging has been most helpful in continued progress in this area. Discussed that he does not have a consistent routine for promoting self-care and maintaining gains. Pt worked cooperatively with group to identify benefits of having a daily routine which included: improving sense of purpose, increasing motivation, and improving follow through. Pt engaged in brainstorming of various daily routine ideas. Pt completed task of creating a daily morning routine and identifying a supportive mantra. Pt stated his morning routine will start by waking at a consistent time and incorporating eating breakfast to his routine each morning. Morning mantra identified as reminding himself ?Smile? and ?Relax?. Pt seemed to benefit from support from peers and learning about benefits of routine. Progress noted in reports of improved confidence and ability to manage anxiety. Pt to continue aftercare group to improve consistent use of healthy coping, maintain gains, and prevent decompensation. Narrative Note: []
--- NOTE | 2020-01-04 14:00 | BH.SGPN.GN ---
Behaviors/Verbalizations/Mental Status: []Client alert and oriented, neatly dressed and groomed. Eye contact good. Motor activity appropriate. Speech within normal limits. Affect unable to gather due to wearing a mask for COVID-19 protocol, mood euthymic. Thoughts linear, logical, no signs of hallucinations or delusions. Client Response/Progress/Benefit: []Pt receptive of session, engaged throughout. Notes feeling ?optimistic? today as he has many positives since last session. Shared he has been following through with his goal to eat breakfast every morning and he continues to sit with uncomfortable emotions. Pt reports he also has been using self-talk and calming skills. Receptive of discussion on personal accountability and its importance in maintaining mental health stability. Pt worked cooperatively with group to identify benefits of maintaining personal accountability. Engaged in discussion on different accountability styles and brainstorming strategies for improving ability to hold themselves accountable. Pt identified that for homework he would like to keep up with his goal of eating breaking each morning and to exercise each morning. Pt reported he can hold himself accountable by keeping track of his activity levels on his Apple watch. Pt seemed to benefit from support from peers and increasing understanding of personal accountability benefits and strategies. Progress noted in client?s consistent report of practicing healthy coping skills over the past 12 weeks. Client notes improved confidence, mood, and reduced DSM-5 scores. Will discharge from [facility] aftercare today and follow up with outpatient counseling. Narrative Note: []
--- NOTE | 2020-01-04 14:57 | BH.DS ---
Discharge Summary - Demographics Date of Admission:: 10/12/19 Discharge Date: 01/04/20 Presenting Problems at Admission:: Client discharged from IOP tx and transitioned to IOP aftercare to maintain gains he made in IOP and to reinforce healthy coping skills. At admission to [facility] aftercare, client reported experiencing slight symptoms of anxiety and depression. Client was also experiencing life stressors including COVID-19 stress, work stress, and ongoing ruminations of decreased frequency. Client also continued to struggle at times with negative self-talk and avoidance behaviors. 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 Additionally, client has accomplished treatment goals and no longer meets criteria for IOP aftercare level of tx. - Treatment Progress During Treatment & Response: Client was engaged and demonstrated progress in IOP aftercare as evidenced by client's participation in group discussions and self-report of consistently applying coping skills. Client's DSM-5 scores decreased by 25% from admission to aftercare to discharge. At discharge, client?s DSM-5 scores for anxiety decreased by 40% and his scores for not feeling connected with supports decreased by 66%. At discharge, client was reporting an improved mood, consistent use of healthy coping skills, increased ability to sit with the uncomfortable, and more confidence. Issues Still to be Addressed:: Client can continue to increase self-confidence and self-advocacy, increase assertive communication, and challenge distortions that reinforce anxiety and depression. Client can benefit from ongoing counseling to reinforce healthy coping skills and promote gains. Discharge Recommendations/Instructions:: Client is recommended to continue counseling with his outpatient therapist, Kait, at [facility]. Client sees Kait on a weekly basis and reports this to be helpful. Client is also encouraged to follow up with his outpatient providers for medication management. Discharge Handout: Complete Discharge Handout with client on aftercare options and continuity of care.
== END 2020-01-22 23:59 ==
LOC: BHOG 14:00
PROVIDERS: PCP Pediatrics; Referring Provider Psychiatry & Neurology Psychiatry; Visit Provider Psychiatry & Neurology Psychiatry
DX: F33.2 Major depressive disorder, recurrent severe without psychotic features (principal); F41.1 Generalized anxiety disorder
CPT/HCPCS: 90853